=== PATIENT | female | born 1975 | race Two or more races ===

== ENCOUNTER 2018-03-20 08:17 | Emergency (ER) | payer OTHER ==
[~2018-03-20] VITALS: Ht 162.6 cm; Wt 99.8 kg
--- OUTSIDE RECORDS SUMMARY | ~2018-03-20 | XMS | Encounter Summary ---
Demographics + + + | Address | [address] | | | [place] [address] | + + + | Home Phone | | + + + | Preferred Language | Unknown | + + + | Marital Status | | + + + | Scientologist Affiliation | Unknown | + + + | Race | Unknown | + + + | Ethnic Group | Unknown | + + + Author + + + | Author | [facility] | + + + | Organization | [facility] | + + + | Address | Unknown | + + + | Phone | Unavailable | + + + Support + + + + + | Name | Relationship | Address | Phone | + + + + + | Onel Falcon | ECON | [address] | | | | | [place] | | | | | [address] | | + + + + + Care Team Providers + +------+ + | Care Middle School English Teacher Name | Role | Phone | + +------+ + | Olga Yanes PA-C | PCP | | + +------+ + Reason for Visit + + + | Reason | Comments | + + + | Labs Only | [facility] 03/11/17 | + + + Encounter Details +--------+ + + + + | Date | Type | Department | Care Team | Description | +--------+ + + + + | 03/02/ | Documentati | [facility] | Dana Lyles CMA | Labs Only ([facility] | | 2018 | on Only | Endocrinology [address] | | Family Med 03/11/17) | | | | aJred LOPE[place] | | | | | | [place], [place] | | | | | | [address] | | | | | | [phone] | | | +--------+ + + + + Social History + + + [...] | | + +---+---+---+ + + | Comments: on and off since age [...] on file | | + + + as of this encounter Plan of Treatment Not on fileas of this encounter Visit Diagnoses Not on filein this encounter"
--- OUTSIDE RECORDS SUMMARY | ~2018-03-20 | XMS | Clinical Summary ---
Demographics + + + | Address | [address] | | | [place] [address] | + + + | Home Phone | | + + + | Preferred Language | Unknown | + + + | Marital Status | | + + + | Alevism Affiliation | Unknown | + + + | Race | Unknown | + + + | Ethnic Group | Unknown | + + + Author + + + | Author | [facility] | + + + | Organization | [facility] | + + + | Address | Unknown | + + + | Phone | Unavailable | + + + Support + + + + + | Name | Relationship | Address | Phone | + + + + + | Onel Falcon | ECON | [address] | | | | | [place] | | | | | [address] | | + + + + + Care Team Providers + +------+ + | Care Food Porter Name | Role | Phone | + [...] Hyperthyroidism | 12/18/2014 | + + + Encounters +--------+ + + + + | Date | Type | Specialty | Care Team | Description | +--------+ + + + + | 03/02/ | Documentati | | Dana Lyles CMA | Labs Only ([facility] | | 2017 | on Only | | | Family Med 03/11/17) | +--------+ + + + + from Last 3 Months Family History + + +------+ + | [...] + +--------+ +------+-------+ + | ADARSH - WPS - | [place] | [phone] | | | [address] [address] | | [place] | [place] | | | | [place], [place] | | | [place] | | | | [phone] | | | [place] | | | [...] | Self | [birth year] | Home: | [address] | | | [place] | | 1974 | [phone] | [place] | | | [place] | | | [phone] | [phone] | + +--------+ +--------+ + +"
--- OUTSIDE RECORDS SUMMARY | ~2018-03-20 | XMS | Clinical Summary ---
Demographics + + + | Address | [address] | | | [place] [address] | + + + | Home Phone | | + + + | Preferred Language | Unknown | + + + | Marital Status | | + + + | Yazidism Affiliation | Unknown | + + + | Race | Unknown | + + + | Ethnic Group | Unknown | + + + Author + + + | Author | [facility] | + + + | Organization | [facility] | + + + | Address | Unknown | + + + | Phone | Unavailable | + + + Support + + + + + | Name | Relationship | Address | Phone | + + + + + | Onel Falcon | ECON | [address] | | | | | [place] | | | | | [address] | | + + + + + Care Team Providers + +------+ + | Care Functional Analyst Name | Role | Phone | + [...] ADARSH - WPS - | [place] | [phone] | | | [address] [address] | | [place] | [place] | | | | [place], [place] | | | [place] | | | | [phone] | | | [place] | | | [...] | Self | [birth year] | Home: | [address] | | | [place] | | 1974 | [phone] | [place] | | | [place] | | | [phone] | [phone] | + +--------+ +--------+ + +"
--- OUTSIDE RECORDS SUMMARY | ~2018-03-20 | XMS | Encounter Summary ---
Demographics + + + | Address | [address] | | | [place] [address] | + + + | Home Phone | | + + + | Preferred Language | Unknown | + + + | Marital Status | | + + + | Yarsanism Affiliation | Unknown | + + + | Race | Unknown | + + + | Ethnic Group | Unknown | + + + Author + + + | Author | [facility] | + + + | Organization | [facility] | + + + | Address | Unknown | + + + | Phone | Unavailable | + + + Support + + + + + | Name | Relationship | Address | Phone | + + + + + | Onel Falcon | ECON | [address] | | | | | [place] | | | | | [address] | | + + + + + Care Team Providers + +------+ + | Care Host And Hostess Name | Role | Phone | + +------+ + | Olga Yanes PA-C | PCP | | + +------+ + Reason for Visit + + + | Reason | Comments | + + + | Labs Only | [facility] 03/11/17 | + + + Encounter Details +--------+ + + + + | Date | Type | Department | Care Team | Description | +--------+ + + + + | 03/02/ | Documentati | [facility] | Dana Lyles CMA | Labs Only ([facility] | | 2018 | on Only | Endocrinology [address] | | Family Med 03/11/17) | | | | Jared LOPEZ | | | | | | [place], [place] | | | | | | [address] | | | | | | [phone] | | | +--------+ + + + [...]
[~2018-03-20 08:17] MED LIST: AMOXICILLIN500 MG PO; CEPHALEXIN500 MG PO; CIPRODEX OTIC7.5 ML AD; CORTISPORIN EAR10 ML AD; FISH OIL 1,2001 EAC1 PO; HYDROCHLOROTH12.5 M1 PO; HYDROCHLOROTH12.5 MG PO; LISINOPRIL10 MG PO; METHIMAZOLE10 MG PO; NORCO 5-325 TA1 EACH PO; PROPRANOLOL HCL10 MG PO; ROBAXIN-750750 MG PO; SUMATRIPTAN SUC50 MG PO; VITAMIN D32000 UNIT PO; VITAMIN D5000 UNIT PO
[2018-03-20] MEDS ORDERED: LISINOPRIL-HCT1 EAC2 PO (08:30)
[2018-03-20] MEDS ORDERED: ONDANSETRON ODT8 MG PO (11:04)
== END 2018-03-20 11:35 | disposition home or self-care (01) ==
LOC: ED 08:17
DX: G43.909 Migraine, unspecified, not intractable, without status migrainosus (principal); Z88.2 Allergy status to sulfonamides; Z88.8 Allergy status to other drugs, medicaments and biological substances; Z79.899 Other long term (current) drug therapy
CPT/HCPCS: 96361; 96374; 96375; 99283; J1200; J1885; J2060; J2765; J7030

== ENCOUNTER 2018-06-12 10:37 | Emergency (ER) | payer OTHER ==
[~2018-06-12] VITALS: Ht 162.6 cm; Wt 99.8 kg
--- OUTSIDE RECORDS SUMMARY | ~2018-06-12 | XMS | Clinical Summary ---
Demographics + + + | Address | [address] | | | [place] [address] | + + + | Home Phone | | + + + | Preferred Language | Unknown | + + + | Marital Status | | + + + | Druze Affiliation | Unknown | + + + | Race | Unknown | + + + | Ethnic Group | Unknown | + + + Author + + + | Author | [facility] | + + + | Organization | [facility] [employer] [facility] | + + + | Address | Unknown | + + + | Phone | Unavailable | + + + Support + + + + + | Name | Relationship | Address | Phone | + + + + + | Onel Falcon | ECON | [address] | | | | | [place] | | | | | [phone] | | + + + + + Care Team Providers + +------+ + | Care Watch Repairer Name | Role | Phone | + +------+ + | Olga Yanes PA-C | PP | | + +------+ + Allergies + + + + + + | Active Allergy | Reactions | Severity | Noted | Comments | | | | | Date | | + + + + + + | Famotidine | Hives | High | 12/19/19 | | | | | | 15 | | + + + + + + | Sulfa Antibiotics | Other (See Comments) | Medium | 06/11/20 | Ear drops, Burning | | | | | 16 | in ear | + + + + + + Current Medications + + +-------+---------+------+------+-------+ | Prescription | Sig. | Disp. | Refills | Star | End | Statu | | | | | | t | Date | s | | | | | | Date | | | + + +-------+---------+------+------+-------+ | Cholecalciferol | Take 5,000 Units by | | | | | Activ | | 5000 UNITS capsule | mouth daily. | | | | | e | + + +-------+---------+------+------+-------+ Active Problems + + + | Problem | Noted Date | + + + | Hyperthyroidism | 12/18/2014 | + + + Family History + + +------+ + | Medical History | Relation | Name | Comments | + + +------+ + | Diabetes type I | Father | | | + + +------+ + | Heart disease | Father | | | + + +------+ + | High cholesterol | Father | | | + + +------+ + | Hypertension | Father | | | + + +------+ + | High cholesterol | Mother | | | + + +------+ + | Hypertension | Mother | | | + + +------+ + + +------+ + + | Relation | Name | Status | Comments | + +------+ + + | Father | | | | + +------+ + + | Mother | | Alive | | + +------+ + + Social History + + + +--------+ + | Tobacco Use | Types | Packs/Day | Years | Date | | | | | Used | | + + + +--------+ + | Former Smoker | Cigarettes | 1 | 20 | Quit: 04/08/2015 | + + + +--------+ + + +---+---+---+ | Smokeless Tobacco: | | | | | Never Used | | | | + +---+---+---+ + + | Tobacco Cessation: Counseling Given: Yes | | Comments: on and off since age 21 | + + + + +---------+ + | Alcohol Use | Drinks/We | oz/Week | Comments | | | ek | | | + + +---------+ + | No | 0 | 0.0 | rarely | | | Standard | | | | | drinks or | | | | | | | | | | equivalen | | | | | t | | | + + +---------+ + + + + | Sex Assigned at | Date Recorded | | | | + + + | Not on file | | + + + Last Filed Vital Signs + + + + | Vital Sign | Reading | Time Taken | + + + + | Blood Pressure | 136/86 | 06/24/2017 10:04 AM PST | + + + + | Pulse | 88 | 06/24/2017 10:04 AM PST | + + + + | Temperature | - | - | + + + + | Respiratory Rate | 14 | 12/18/2014 1:03 PM PDT | + + + + | Oxygen Saturation | 100% | 06/24/2017 10:04 AM PST | + + + + | Inhaled Oxygen | - | - | | Concentration | | | + + + + | Weight | 108 kg (238 lb) | 06/24/2017 10:04 AM PST | + + + + | Height | - | - | + + + + | Body Mass Index | - | - | + + + + Plan of Treatment + + + + + | Health Maintenance | Due Date | Last Done | Comments | + + + + + | Vaccine: | | | | | Dtap/Tdap/Td (1 - | 6 | | | | Tdap) | | | | + + + + + | Cervical Cancer | | | | | Screening (Pap) | 7 | | | + + + + + | Vaccine: Influenza | | | | | (#1) | 8 | | | + + + + + Results Not on filefrom Last 3 Months Insurance + +--------+ +------+-------+ + | Payer | Benefi | Subscriber | Type | Phone | Address | | | t Plan | ID | | | | | | / | | | | | | | Group | | | | | + +--------+ +------+-------+ + | ADARSH - S - | [place] | [id number] | | | [place] [address] | | [place] | [place] | | | | [place] | | | [place] | | | | [phone] | | | [place] | | | | | | | NFS | | | | | + +--------+ +------+-------+ + + +--------+ +--------+ + + | Guarantor Name | Accoun | Relation to | Date | Phone | Billing Address | | | t Type | Patient | of | | | | | | | | | | + +--------+ +--------+ + + | ANGELINA FALCON | Person | Self | [birth year] | Home: | [address] | | | al/Fam | | 1974 | [phone] | [place] | | | [place] | | | [phone] | [phone] | + +--------+ +--------+ + +"
--- OUTSIDE RECORDS SUMMARY | ~2018-06-12 | XMS | Clinical Summary ---
Demographics + + + | Address | [address] | | | [place] [address] | + + + | Home Phone | | + + + | Preferred Language | Unknown | + + + | Marital Status | | + + + | Cheondoism Affiliation | Unknown | + + + | Race | Unknown | + + + | Ethnic Group | Unknown | + + + Author + + + | Author | [facility] [employer] [facility] | + + + | Organization | [facility] [employer] [facility] | + + + | Address | Unknown | + + + | Phone | Unavailable | + + + Support + + + + + | Name | Relationship | Address | Phone | + + + + + | Onel Falcon | ECON | [address] | | | | | [place] | | | | | [address] | | + + + + + Care Team Providers + +------+ + | Care Skinner Pelts Name | Role | Phone | + [...] ADARSH - S - | [place] | [id number] | | | [place] [address] | | [place] | [place] | | | | [place] | | | [place] | | | | [phone] | | | [place] | | | [...] | Self | [birth year] | Home: | [address] | | | al/Fam | | 1974 | [phone] | [place] | | | [place] | | | [phone] | [phone] | + +--------+ +--------+ + +"
[~2018-06-12 10:37] MED LIST changes: +LISINOPRIL-HCT1 EAC2 PO; +ONDANSETRON ODT8 MG PO
[2018-06-12] MEDS ORDERED: LEVOTHYROXINE75 MCG PO (10:50)
--- NOTE | 2018-06-12 14:28 | EKG ---
[facility] [address] [facility] [place], [place] [address] Signed Normal sinus rhythm Normal ECG No previous ECGs available Confirmed by ADAL DE LA VEGA DO ([id number]) on 06/12/2018 2:28:36 PM Electronically Signed By: ADAL DE LA VEGA DO 06/12/18 1428 PATIENT NAME: TALON NICHOLAS Electrocardiogram DATE OF : 79 PHYSICIAN: ADAL DE LA VEGA DO REPORT #: [id number] REPORT IS CONFIDENTIAL AND NOT TO BE RELEASED WITHOUT AUTHORIZATION
== END 2018-06-12 16:35 | disposition home or self-care (01) ==
LOC: ED 10:37
DX: R20.2 Paresthesia of skin (principal); E03.9 Hypothyroidism, unspecified; I10 Essential (primary) hypertension; G43.909 Migraine, unspecified, not intractable, without status migrainosus; Z87.891 Personal history of nicotine dependence; Z88.2 Allergy status to sulfonamides; Z88.8 Allergy status to other drugs, medicaments and biological substances; Z79.899 Other long term (current) drug therapy
CPT/HCPCS: 70450; 70496; 70498; 70551; 80053; 81001; 84484; 85025; 93005; 93010; 99284; Q9967

== ENCOUNTER 2018-10-08 11:22 | Emergency (ER) | payer OTHER ==
[~2018-10-08] VITALS: Ht 162.6 cm; Wt 99.8 kg
[~2018-10-08 11:22] MED LIST changes: +LEVOTHYROXINE75 MCG PO
--- NOTE | 2018-10-08 22:36 | EKG ---
[facility] [address] [facility] [place] [address] Signed Normal sinus rhythm Normal ECG When compared with ECG of 12-JUN-2018 11:03, No significant change was found Confirmed by ERIN ARMSTRONG MD ([id number]) on 10/08/2018 10:36:24 PM Electronically Signed By: ERIN ARMSTRONG MD 10/08/18 2236 PATIENT NAME: TALON NICHOLAS ZEUS Electrocardiogram DATE OF : [birth year] PHYSICIAN: ERIN ARMSTRONG MD REPORT #: [id number] REPORT IS CONFIDENTIAL AND NOT TO BE RELEASED WITHOUT AUTHORIZATION
== END 2018-10-08 15:20 | disposition home or self-care (01) ==
LOC: ED 11:22
DX: M54.6 Pain in thoracic spine (principal); R53.1 Weakness; E03.9 Hypothyroidism, unspecified; Z88.2 Allergy status to sulfonamides; Z88.8 Allergy status to other drugs, medicaments and biological substances; Z79.899 Other long term (current) drug therapy
CPT/HCPCS: 80053; 81001; 84484; 85025; 85379; 93005; 93010; 99285-25

== ENCOUNTER 2018-10-26 08:05 | Day surgery (SDC) | payer OTHER ==
[~2018-10-26] VITALS: Ht 162.6 cm; Wt 102.5 kg
[~2018-10-26 08:05] MED LIST changes: +IRON325 M1 PO; +K-TAB ER20 MEQ PO; +MAGNESIUM250 M1 PO; +PROZAC10 MG PO; +VITAMIN D5000 UNI1 PO; +VITAMIN K240 MCG PO
[2018-10-26] MEDS ORDERED: ATIVAN1 MG PO (08:34)
--- NOTE | 2018-10-26 10:18 | NUR ---
10/26/18 1018 Mitra Klein 1012 PATIENT ARRIVES TO PACU SLEEPING, OPENS EYES WITH VERBAL STIMULI, THEN BACK TO SLEEP. RESP EVEN AND UNLABORED, NC TURNED OFF ON ARRIVAL TO PACU, ROOM AIR SATS >95%.
--- NOTE | 2018-10-27 07:00 | OR ---
[facility] [address] [place], [place] [address] Signed DATE OF OPERATION: 10/26/2018 SURGEON: Vinicio Chicas MD PREOPERATIVE DIAGNOSES: 1. Iron-deficiency anemia. 2. Gastroesophageal reflux disease. 3. Nausea. 4. Epigastric abdominal pain. 5. Constipation following oral iron therapy. POSTOPERATIVE DIAGNOSES: 1. Small hiatal hernia. 2. Mild gastroduodenitis. 3. 3 mm polyp in cecum. 4. 3 mm polyp at 18 cm. 5. Minimal internal hemorrhoids. PROCEDURES: 1. EGD with CLOtest and biopsies of the antrum. 2. Colonoscopy without biopsy. ESTIMATED BLOOD LOSS: None. INDICATIONS: Angelina is a 43-year-old female who was found to have iron-deficiency anemia. She is also known to have acid reflux. She started on her oral iron therapy and developed some constipation. She also has some nausea and epigastric abdominal pain. Consequently, she was asked to see me for both upper and lower endoscopies. In the office, I gave her pamphlets on both subjects. We looked at those together. She understands the risks including, but not limited to gas, bloating, crampy abdominal pain, bleeding, perforation, requiring surgery, and missed diagnoses. She also understands the need for IV conscious sedation. She told me she had an upper endoscopy a number of years ago at an outside hospital. She said she was awake during the procedure and it was quite awful. We gave her some Xanax to take prior to coming to the hospital, which she did. She said that seemed to help. She had expressed understanding and wished to proceed. PROCEDURE NOTE: Angelina was taken into our endoscopy suite and placed in the supine semi-recumbent Electronically Signed By: VINICIO CHICAS MD 10/27/18 0700 PATIENT NAME: ANGELINA NICHOLAS OPERATIVE REPORT DATE OF : 79 REPORT #: [id number] PHYSICIAN: VINICIO CHICAS MD PCP: OLGA CHEATHAM REPORT IS CONFIDENTIAL AND NOT TO BE RELEASED WITHOUT AUTHORIZATION [facility] [address] [place], [place] [address] Signed position. She was given a total of 7 mg of Versed and 200 mcg fentanyl to cover both upper and lower endoscopies. The posterior oropharynx was anesthetized with lidocaine spray. A bite block was utilized for the upper endoscopy. The adult gastroscope was introduced and advanced under direct visualization of camera out into the third portion of the duodenum under direct visualization the camera without difficulty. The duodenum was unremarkable. The pyloric channel and stomach showed very minimal erythematous changes. We went ahead and took a biopsy from the pyloric bulb as well as the antrum for pathologic review. We took a biopsy of the antrum for CLOtest. No ulcerations. Upon retroflexion of the scope, she does have just a small hiatal hernia. There was no gastric or esophageal varices. The scope was withdrawn up to the area of GE junction, which was compliant without stricture. No Stanislaw's ulcer and no Leslee-La tear. Very minimal disruption to her Z-line. No Ta's mucosa and no distal esophagitis. The middle and upper esophagus were unremarkable. After this, the gas was suctioned out and the gastroscope removed. Angelina tolerated the procedure quite well. Angelina was then rotated into the left lateral decubitus position. She was maintained on IV sedation with IV Versed and fentanyl. A digital rectal exam was performed and this was unremarkable. She does have good sphincter tone. The adult colonoscope was introduced and advanced all around into the cecum under direct visualization of camera without difficulty. Her prep was quite good. She had just a tiny 3 mm polyp in the base of the cecum, so we removed it with hot biopsy forceps. The rest of the colon was fine, and just as we came to the rectosigmoid junction, she had two tiny 3 mm polyp [id number], which we removed and sent to the Pathology Department. The rectum was unremarkable. There was no diverticulosis. Upon retroflexion of scope, she does have some very small internal hemorrhoid tissue. The gas was then suctioned out and the colonoscope removed. Angelina actually tolerated both upper and lower endoscopies quite well our. RECOMMENDATIONS: Angelina will follow up my office in 7 to 14 days to review her results. Vinicio Chicas MD ALB/MODL /[id number] Electronically Signed By: VINICIO CHICAS MD 10/27/18 0700 PATIENT NAME: ANGELINA NICHOLAS OPERATIVE REPORT DATE OF : [birth year] REPORT #: [id number] PHYSICIAN: VINICIO CHICAS MD PCP: OLGA CHEATHAM REPORT IS CONFIDENTIAL AND NOT TO BE RELEASED WITHOUT AUTHORIZATION [address] [address] Signed cc: MD Olga Cleveland PA Shannon Bales, MD Copies: VINICIO CHICAS MD, LINDA PA BALES, SHANNON MD ~ Electronically Signed By: VINICIO CHICAS MD 10/27/18 0700 PATIENT NAME: ANGELINA NICHOLAS OPERATIVE REPORT DATE OF : [birth year] REPORT #: [id number] PHYSICIAN: VINICIO CHICAS MD PCP: OLAG CHEATHAM REPORT IS CONFIDENTIAL AND NOT TO BE RELEASED WITHOUT AUTHORIZATION
== END 2018-10-26 10:55 | disposition home or self-care (01) ==
LOC: DS 08:05 → OPS 08:05 → DS 09:45 → OPS 10:55
PROVIDERS: Colon & Rectal Surgery
PROC: 0DBH8ZZ Excision of Cecum, Via Natural or Artificial Opening Endoscopic (ICD-10-PCS; 2018-10-26)
PROC: 0DBE8ZZ Excision of Large Intestine, Via Natural or Artificial Opening Endoscopic (ICD-10-PCS; 2018-10-26)
PROC: 0DB98ZX Excision of Duodenum, Via Natural or Artificial Opening Endoscopic, Diagnostic (ICD-10-PCS; principal; 2018-10-26 09:45)
PROC: 0DB78ZX Excision of Stomach, Pylorus, Via Natural or Artificial Opening Endoscopic, Diagnostic (ICD-10-PCS; 2018-10-26 09:45)
DX: D12.0 Benign neoplasm of cecum (principal); K29.50 Unspecified chronic gastritis without bleeding; K29.80 Duodenitis without bleeding; K63.5 Polyp of colon; K64.8 Other hemorrhoids; K21.9 Gastro-esophageal reflux disease without esophagitis; K59.00 Constipation, unspecified; K44.9 Diaphragmatic hernia without obstruction or gangrene; D50.9 Iron deficiency anemia, unspecified; I10 Essential (primary) hypertension; E78.5 Hyperlipidemia, unspecified; G43.909 Migraine, unspecified, not intractable, without status migrainosus; F17.210 Nicotine dependence, cigarettes, uncomplicated; Z88.8 Allergy status to other drugs, medicaments and biological substances; Z88.2 Allergy status to sulfonamides; Z79.899 Other long term (current) drug therapy
CPT/HCPCS: 86677; 99153; G0500; J2250; J3010; J7120

== ENCOUNTER 2019-03-28 13:58 | Emergency (ER) | payer OTHER ==
[~2019-03-28] VITALS: Ht 162.6 cm; Wt 102.5 kg
[~2019-03-28 13:58] MED LIST changes: +ATIVAN1 MG PO
--- OUTSIDE RECORDS SUMMARY | 2019-03-28 14:00 | XMS ---
PreManage Notification: TALON NICHOLAS Security Secondary Teacher Events No recent Security Events currently on file CRITERIA MET - [facility] - 2 Visits in 30 Days CARE PROVIDERS There are no care providers on record at this time. [facility] has no Care Guidelines for this patient. Pam[facility] VISIT COUNT (12 MO.) [address] [facility] TOTAL 4 NOTE: Visits indicate total known visits. ED/C VISIT TRACKING (12 MO.) 03/28/2019 13:59 [facility] TYPE: Emergency COMPLAINT: - CHEST PAIN 03/04/2019 22:52 [facility] TYPE: Emergency COMPLAINT: - BLOOD PRESSURE CONSERN DIAGNOSES: - Essential (primary) hypertension - Hypothyroidism, unspecified - Chest pain, unspecified - Pain in left shoulder - Other equipment operator intermodal yard (current) drug therapy - Allergy status to other drugs, medicaments and biological substances status - Allergy status to sulfonamides status 10/08/2018 11:23 [facility] TYPE: Emergency COMPLAINT: - BACK PAIN,NON INJURY DIAGNOSES: - Hypothyroidism, unspecified - Pain in thoracic spine - Allergy status to sulfonamides status - Weakness - Other equipment operator intermodal yard (current) drug therapy - Allergy status to other drugs, medicaments and biological substances status 06/12/2018 10:37 [facility] TYPE: Emergency COMPLAINT: - BLOOD PRESSURE PROBLEMS,NUMBNESS DIAGNOSES: - Essential (primary) hypertension - Migraine, unspecified, not intractable, without status migrainosus - Allergy status to other drugs, medicaments and biological substances status - Other equipment operator intermodal yard (current) drug therapy - Allergy status to sulfonamides status - Anesthesia of skin - Paresthesia of skin - Personal history of nicotine dependence - Hypothyroidism, unspecified INPATIENT VISIT TRACKING (12 MO.) No inpatient visits to display in this time frame [email or web address]
[2019-03-28] MEDS ORDERED: CLONIDINE HCL0.1 M1 PO (15:40)
--- NOTE | 2019-03-28 21:43 | EKG ---
[facility] [address] [facility] [place] [address] Signed Normal sinus rhythm Normal ECG When compared with ECG of 04-MAR-2019 23:00, No significant change was found Confirmed by ADAL DE LA VEGA DO ([id number]) on 03/28/2019 9:43:41 PM Electronically Signed By: ADAL DE LA VEGA DO 03/28/19 2143 PATIENT NAME: TALON NICHOLAS ZEUS Electrocardiogram DATE OF : 79 PHYSICIAN: ADAL DE LA VEGA DO REPORT #: [id number] REPORT IS CONFIDENTIAL AND NOT TO BE RELEASED WITHOUT AUTHORIZATION
== END 2019-03-28 15:54 | disposition home or self-care (01) ==
LOC: ED 13:58
DX: I10 Essential (primary) hypertension (principal); E03.9 Hypothyroidism, unspecified; G43.909 Migraine, unspecified, not intractable, without status migrainosus; Z88.2 Allergy status to sulfonamides; Z88.8 Allergy status to other drugs, medicaments and biological substances; Z79.899 Other long term (current) drug therapy
CPT/HCPCS: 71045; 80053; 83880; 84484; 85025; 93005; 93010; 99285-25

== ENCOUNTER 2020-03-07 16:36 | Emergency (ER) | payer OTHER ==
[~2020-03-07] VITALS: Ht 162.6 cm; Wt 104.3 kg
--- OUTSIDE RECORDS SUMMARY | ~2020-03-07 | XMS | Encounter Summary ---
Demographics + + + | Address | [address] | | | [place] [address] | + + + | Home Phone | | + + + | Preferred Language | Unknown | + + + | Marital Status | Unknown | + + + | Temple Affiliation | Unknown | + + + | Race | Unknown | + + + | Ethnic Group | Unknown | + + + Author + + + | Author | [facility] | | | and [place] | + + + | Organization | [facility] | | | and [place] | + + + | Address | Unknown | + + + | Phone | Unavailable | + + + Support + + + + + | Name | Relationship | Address | Phone | + + + + + | Onel Falcon | JESSICA | [address] | | | | | [place] | | | | | [address] | | + + + + + Care Team Providers + +------+ + | Care Returned Goods Inspector Name | Role | Phone | + +------+ + | Ogla Yanes PA-C | PCP | | + +------+ + Encounter Details +--------+ + + + + | Date | Type | Department | Care Team | Description | +--------+ + + + + | 03/15/ | Orders Only | [facility] | Samara Carvalho MD | | | 2017 | | [address] | [address] | | | | | [place], [place] | [place], [place] | | | | | [address] | [address] | | | | | [phone] | | | +--------+ + + + [...] + + documented as of this encounter Progress Notes Samara Carvalho MD - 03/15/2017 4:25 PM PDTFormatting of this note might be different fr om the original. Progress Notes by Samara Carvalho MD at 03/15/17 1625 Author: Samara Carvalho MD Service: (none) Author Type: Physician Filed: 03/16/17 0909 Encounter Date: 03/15/2017 Status: Signed Parts Assembler: Samara Carvalho MD (Physician) Please contact patient and inform of the lab results. I have also sent note via [employer]. Pl ease also send note to PMD Hope you are doing well! The recent labs are overall reassuring. The THS is NORMAL at 4.85 As suspected, the labs indicate that we should stop the methimazole entirely at this junctu re. Please stop the methimazole. Please be sure to have labs again in 6-8 weeks (orders were provided to you at the appointment). Otherwise the liver, kidney, calcium and blood counts are in acceptable ranges. Please continue with all other previous plans for management and follow up, unless there ar e any other concerns or questions. Take care SB documented in this encounter Plan of Treatment Not on filedocumented as of this encounter Procedures + +--------+ + + + | Procedure Name | Priori | Date/Time | Associated Diagnosis | Comments | | | ty | | | | + +--------+ + + + | EXTERNAL LAB: CBC | Routin | 03/15/2017 | | Results for this | | | e | 4:30 PM | | procedure are in the | | | | PDT | | results section. | + +--------+ + + + | T3, FREE | Routin | 03/15/2017 | | Results for this | | | e | 4:30 PM | | procedure are in the | | | | PDT | | results section. | + +--------+ + + + | TSH | Routin | 03/15/2017 | | Results for this | | | e | 4:30 PM | | procedure are in the | | | | PDT | | results section. | + +--------+ + + + | T4, FREE | Routin | 03/15/2017 | | Results for this | | | e | 4:30 PM | | procedure are in the | | | | PDT | | results section. | + +--------+ + + + | COMPREHENSIVE | Routin | 03/15/2017 | | Results for this | | METABOLIC PANEL | e | 4:30 PM | | procedure are in the | | | | PDT | | results section. | + +--------+ + + + documented in this encounter Results External Lab: CBC (03/15/2017 4:30 PM PDT) + + + + + + | Component | Value | Ref Range | Performed | Pathologist | | | | | At | Signature | + + + + + + | WBC | 7.81 | 3.80 - 11.00 | EXTERNAL | | | | | 10*3/uL | LAB | | + + + + + + | Non- | 4.73 | 3.70 - 5.10 | EXTERNAL | | | Red Blood | | 10*6/uL | LAB | | | Cells | | | | | | Counted | | | | | + + + + + + | Hemoglobin | 11.8 | 11.3 - 15.5 | EXTERNAL | | | | | g/dL | LAB | | + + + + + + | Hematocrit, | 36.5 | 34.0 - 46.0 % | EXTERNAL | | | POC | | | LAB | | + + + + + + | MCV | 77.2 (L) | 80.0 - 100.0 fL | EXTERNAL | | | | | | LAB | | + + + + + + | MCH | 24.9 (L) | 27.0 - 34.0 pg | EXTERNAL | | | | | | LAB | | + + + + + + | MCHC | 32.3 | 32.0 - 35.5 | EXTERNAL | | | | | g/dL | LAB | | + + + + + + | RDW-CV | 42.0 | 37 - 53 fL | EXTERNAL | | | | | | LAB | | + + + + + + | Platelet | 260 | 150 - 400 | EXTERNAL | | | Count | | 10*3/uL | LAB | | | Plasma | | | | | + + + + + + | MPV | 9.4 | fL | EXTERNAL | | | | | | LAB | | + + + + + + | Differentia | AUTOMATED | | EXTERNAL | | | l Type | | | LAB | | + + + + + + | % Segmented | 58.84 | % | EXTERNAL | | | | | | LAB | | | Neutrophils | | | | | + + + + + + | % | 33.08 | % | EXTERNAL | | | Lymphocytes | | | LAB | | + + + + + + | % Monocytes | 4.63 | % | EXTERNAL | | | | | | LAB | | + + + + + + | % | 2.64 | % | EXTERNAL | | | Eosinophils | | | LAB | | + + + + + + | % Basophils | 0.81 | % | EXTERNAL | | | | | | LAB | | + + + + + + | Absolute | 4.60 | 1.90 - 7.40 | EXTERNAL | | | Segmented | | 10*3/uL | LAB | | | Neutrophils | | | | | + + + + + + | Absolute | 2.59 | 1.00 - 3.90 | EXTERNAL | | | Lymphocytes | | 10*3/uL | LAB | | + + + + + + | Absolute | 0.36 | 0.00 - 0.80 | EXTERNAL | | | Monocytes | | 10*3/uL | LAB | | + + + + + + | Absolute | 0.21 | 0.00 - 0.50 | EXTERNAL | | | Eosinophils | | 10*3/uL | LAB | | + + + + + + | Absolute | 0.06 | 0.00 - 0.10 | EXTERNAL | | | Basophils | | 10*3/uL | LAB | | + + + + + + + + | Specimen | + + | Blood specimen | | (specimen) | + + + +---------+ + + | Performing | Address | City/State/Zipcode | Phone Number | | Organization | | | | + +---------+ + + | EXTERNAL LAB | | | | + +---------+ + + T3, Free (03/15/2017 4:30 PM PDT) + +-------+ + + + | Component | Value | Ref Range | Performed | Pathologist | | | | | At | Signature | + +-------+ + + + | T3, Free | 2.3 | 2.18 - 3.98 | EXTERNAL | | | | | pg/mL | LAB | | + +-------+ + + + + + | Specimen | + + | Blood specimen | | (specimen) | + + + +---------+ + + | Performing | Address | City/State/Zipcode | Phone Number | | Organization | | | | + +---------+ + + | EXTERNAL LAB | | | | + +---------+ + + TSH (03/15/2017 4:30 PM PDT) + +-------+ + + + | Component | Value | Ref Range | Performed | Pathologist | | | | | At | Signature | + +-------+ + + + | TSH | 4.85 | 0.45 - 5.10 | EXTERNAL | | | | | u[iU]/mL | LAB | | + +-------+ + + + + + | Specimen | + + | Blood specimen | | (specimen) | + + + +---------+ + + | Performing | Address | City/State/Zipcode | Phone Number | | Organization | | | | + +---------+ + + | EXTERNAL LAB | | | | + +---------+ + + T4, Free (03/15/2017 4:30 PM PDT) + +-------+ + + + | Component | Value | Ref Range | Performed | Pathologist | | | | | At | Signature | + +-------+ + + + | FREE T4 | 0.8 | 0.7 - 1.5 ng/dL | EXTERNAL | | | (REF) | | | LAB | | + +-------+ + + + + + | Specimen | + + | Blood specimen | | (specimen) | + + + +---------+ + + | Performing | Address | City/State/Zipcode | Phone Number | | Organization | | | | + +---------+ + + | EXTERNAL LAB | | | | + +---------+ + + Comprehensive Metabolic Panel (03/15/2017 4:30 PM PDT) + + + + + + | Component | Value | Ref Range | Performed | Pathologist | | | | | At | Signature | + + + + + + | Na | 138 | 135 - 145 | EXTERNAL | | | | | mmol/L | LAB | | + + + + + + | K | 3.7 | 3.5 - 4.9 | EXTERNAL | | | | | mmol/L | LAB | | + + + + + + | Cl | 101 | 99 - 109 mmol/L | EXTERNAL | | | | | | LAB | | + + + + + + | CO2 | 24 | 23 - 32 mmol/L | EXTERNAL | | | | | | LAB | | + + + + + + | Anion Gap | 17 | 5 - 20 mmol/L | EXTERNAL | | | | | | LAB | | + + + + + + | Glucose, | 74 | 65 - 99 mg/dL | EXTERNAL | | | Fasting | | | LAB | | + + + + + + | BUN | 16 | 8 - 25 mg/dL | EXTERNAL | | | | | | LAB | | + + + + + + | Creatinine | 0.8 | 0.50 - 1.00 | EXTERNAL | | | | | mg/dL | LAB | | + + + + + + | BUN/Creatin | 20 | | EXTERNAL | | | ine Ratio | | | LAB | | + + + + + + | Calcium | 9.1 | 8.5 - 10.5 | EXTERNAL | | | | | mg/dL | LAB | | + + + + + + | Protein, | 7.1 | 6.3 - 8.2 g/dL | EXTERNAL | | | Total | | | LAB | | + + + + + + | Albumin | 3.7 | 3.6 - 5.0 g/dL | EXTERNAL | | | | | | LAB | | + + + + + + | Globulin | 3.4 | 1.3 - 4.9 g/dL | EXTERNAL | | | | | | LAB | | + + + + + + | A/G Ratio | 1.1 | 1.0 - 2.4 | EXTERNAL | | | | | | LAB | | + + + + + + | Bilirubin | 0.3 | 0.1 - 1.5 mg/dL | EXTERNAL | | | Total | | | LAB | | + + + + + + | ALP, | 64 | 35 - 115 U/L | EXTERNAL | | | External | | | LAB | | + + + + + + | AST | 48 (H) | 10 - 45 U/L | EXTERNAL | | | | | | LAB | | + + + + + + | ALT | 54 | 10 - 65 U/L | EXTERNAL | | | | | | LAB | | + + + + + + | Estimated | >60Comment: GFR <60: | mL/min/1.73_m2 | EXTERNAL | | | GFR | CHRONIC KIDNEY DISEASE, | | LAB | | | | IF FOUND OVER A 3 MONTH | | | | | | PERIOD. GFR <15: KIDNEY | | | | | | FAILURE. FOR | | | | | | AMERICANS, MULTIPLY THE | | | | | | CALCULATED GFR BY 1.210. | | | | + + + + + + + + | Specimen | + + | Blood specimen | | (specimen) | + + + +---------+ + + | Performing | Address | City/State/Zipcode | Phone Number | | Organization | | | | + +---------+ + + | EXTERNAL LAB | | | | + +---------+ + + documented in this encounter Visit Diagnoses Not on filedocumented in this encounter"
--- OUTSIDE RECORDS SUMMARY | ~2020-03-07 | XMS | Encounter Summary ---
Demographics + + + | Address | [address] | | | [place] [address] | + + + | Home Phone | | + + + | Preferred Language | Unknown | + + + | Marital Status | Unknown | + + + | Orthodoxy Affiliation | Unknown | + + + | Race | Unknown | + + + | Ethnic Group | Unknown | + + + Author + + + | Author | [facility] | | | and [place] | + + + | Organization | [facility] | | | and [place] | + + + | Address | Unknown | + + + | Phone | Unavailable | + + + Support + + + + + | Name | Relationship | Address | Phone | + + + + + | Onel Falcon | JESSICA | [address] | | | | | [place] | | | | | [address] | | + + + + + Care Team Providers + +------+ + | Care Floor Hand Name | Role | Phone | + +------+ + PCP | Unavailable | + +------+ + Encounter Details +--------+ + + + + | Date | Type | Department | Care Team | Description | +--------+ + + + + | 06/22/ | Hospital | [facility] | Conversion | | | 2016 | Encounter | [facility] | Transaction, | | | | | NUCLEAR MEDICINE | Provider Unknown | | | | | [address] | | | | | | [place], [place] | (Fax) | | | | | [address] | | | | | | [phone] | | | +--------+ + + + [...]
--- OUTSIDE RECORDS SUMMARY | ~2020-03-07 | XMS | Encounter Summary ---
Demographics + + + | Address | [address] | | | [place] [address] | + + + | Home Phone | | + + + | Preferred Language | Unknown | + + + | Marital Status | Unknown | + + + | Hoahaoism Affiliation | Unknown | + + + | Race | Unknown | + + + | Ethnic Group | Unknown | + + + Author + + + | Author | [facility] | | | and [place] | + + + | Organization | [facility] | | | and [place] | + + + | Address | Unknown | + + + | Phone | Unavailable | + + + Support + + + + + | Name | Relationship | Address | Phone | + + + + + | Onel Falcon | JESSICA | [address] | | | | | [place] | | | | | [address] | | + + + + + Care Team Providers + +------+ + | Care Band Teacher Name | Role | Phone | + +------+ + PCP | Unavailable | + +------+ + Encounter Details +--------+ + + + + | Date | Type | Department | Care Team | Description | +--------+ + + + + | 06/23/ | Hospital | [facility] | Conversion | | | 2016 | Encounter | [facility] | Transaction, | | | | | NUCLEAR MEDICINE | Provider Unknown | | | | | [address] | | | | | | [place], [place] | (Fax) | | | | | [address] | | | | | | [phone] | | | +--------+ + + + [...]
--- OUTSIDE RECORDS SUMMARY | ~2020-03-07 | XMS | Encounter Summary ---
Demographics + + + | Address | [address] | | | [place] [address] | + + + | Home Phone | | + + + | Preferred Language | Unknown | + + + | Marital Status | Unknown | + + + | Moravian Affiliation | Unknown | + + + | Race | Unknown | + + + | Ethnic Group | Unknown | + + + Author + + + | Author | [facility] | | | and [place] | + + + | Organization | [facility] | | | and [place] | + + + | Address | Unknown | + + + | Phone | Unavailable | + + + Support + + + + + | Name | Relationship | Address | Phone | + + + + + | Onel Falcon | JESSICA | [address] | | | | | [place], [place] | | | | | [address] | | + + + + + Care Team Providers + +------+ + | Care Glory Hole Tender Name | Role | Phone | + +------+ + | Olga Yanes PA-C | PCP | | + +------+ + Encounter Details +--------+ + + + + | Date | Type | Department | Care Team | Description | +--------+ + + + + | 06/11/ | Orders Only | [facility] | Conversion | | | 2016 | | CONVERSION [address] | Transaction, | | | | | [address] | Provider Unknown | | | | | [place] | [phone] | | | | | [address] | | | | | | [phone] | | | +--------+ + + + [...]
--- OUTSIDE RECORDS SUMMARY | ~2020-03-07 | XMS | Encounter Summary ---
Demographics + + + | Address | [address] | | | [place] [address] | + + + | Home Phone | | + + + | Preferred Language | Unknown | + + + | Marital Status | Unknown | + + + | Pentecostalism Affiliation | Unknown | + + + | Race | Unknown | + + + | Ethnic Group | Unknown | + + + Author + + + | Author | [facility] | | | and [place] | + + + | Organization | [facility] | | | and [place] | + + + | Address | Unknown | + + + | Phone | Unavailable | + + + Support + + + + + | Name | Relationship | Address | Phone | + + + + + | Onel Falcon | JESSICA | [address] | | | | | [place] | | | | | [address] | | + + + + + Care Team Providers + +------+ + | Care Storage Facility Rental Clerk Name | Role | Phone | + +------+ + | Olga Yanes PA-C | PCP | | + +------+ + Encounter Details +--------+ + + + + | Date | Type | Department | Care Team | Description | +--------+ + + + + | 10/11/ | Orders Only | [facility] | Samara Carvalho MD | | | 2017 | | [address] | [address] | | | | | [place], [place] | [place], [place] | | | | | [address] | [address] | | | | | [phone] | | | +--------+ + + + [...] encounter Progress Notes Samara Carvalho MD - 10/12/2016 12:40 PM PSTFormatting of this note might be different fr om the original. Progress Notes by Samara Carvalho MD at 10/12/16 1240 Author: Samara Carvalho MD Service: (none) Author Type: Physician Filed: 10/12/16 8921 Encounter Date: 10/11/2016 Status: Signed [employer] Special Ed Teacher: Samara Carvalho MD (Physician) Quick Note: Please contact patient and inform of the lab results. I have also sent a note via [employer] Pleasure to see you the other day! The recent labs are quite reassuring! The free thyroid hormone levels are in a normal range. It will take several more months for the TSh to normalize, but this is fantastic progress! Otherwise the liver and kidney function is normal. Please decrease the methimazole to 1/2 of a 10mg tablet daily for now. Please have labs done again in about 8 weeks closer to home. I suspect we will be stopping the methimazole at that time. Please also continue with all other previous plans for management and follow up in February with labs prior, unless there are any other concerns or questions. Take care SB documented in this encounter Plan of Treatment Not on filedocumented as of this encounter Procedures + +--------+ + + + | Procedure Name | Priori | Date/Time | Associated Diagnosis | Comments | | | ty | | | | + +--------+ + + + | EXTERNAL LAB: CBC | Routin | 10/11/2016 | | Results for this | | | e | 2:33 PM | | procedure are in the | | | | PST | | results section. | + +--------+ + + + | T3, FREE | Routin | 10/11/2016 | | Results for this | | | e | 2:33 PM | | procedure are in the | | | | PST | | results section. | + +--------+ + + + | TSH | Routin | 10/11/2016 | | Results for this | | | e | 2:33 PM | | procedure are in the | | | | PST | | results section. | + +--------+ + + + | T4, FREE | Routin | 10/11/2016 | | Results for this | | | e | 2:33 PM | | procedure are in the | | | | PST | | results section. | + +--------+ + + + | COMPREHENSIVE | Routin | 10/11/2016 | | Results for this | | METABOLIC PANEL | e | 2:33 PM | | procedure are in the | | | | PST | | results section. | + +--------+ + + + documented in this encounter Results External Lab: CBC (10/11/2016 2:33 PM PST) + + + + + + | Component | Value | Ref Range | Performed | Pathologist | | | | | At | Signature | + + + + + + | WBC | 8.17 | 3.80 - 11.00 | EXTERNAL | | | | | 10*3/uL | LAB | | + + + + + + | Non- | 4.91 | 3.70 - 5.10 | EXTERNAL | | | Red Blood | | 10*6/uL | LAB | | | Cells | | | | | | Counted | | | | | + + + + + + | Hemoglobin | 13.2 | 11.3 - 15.5 | EXTERNAL | | | | | g/dL | LAB | | + + + + + + | Hematocrit, | 39.1 | 34.0 - 46.0 % | EXTERNAL | | | POC | | | LAB | | + + + + + + | MCV | 79.7 (L) | 80.0 - 100.0 fL | EXTERNAL | | | | | | LAB | | + + + + + + | MCH | 26.8 (L) | 27.0 - 34.0 pg | EXTERNAL | | | | | | LAB | | + + + + + + | MCHC | 33.7 | 32.0 - 35.5 | EXTERNAL | | | | | g/dL | LAB | | + + + + + + | RDW-CV | 38.1 | 37 - 53 fL | EXTERNAL | | | | | | LAB | | + + + + + + | Platelet | 283 | 150 - 400 | EXTERNAL | | | Count | | 10*3/uL | LAB | | | Plasma | | | | | + + + + + + | MPV | 8.6 | fL | EXTERNAL | | | | | | LAB | | + + + + + + | Differentia | AUTOMATED | | EXTERNAL | | | l Type | | | LAB | | + + + + + + | % Segmented | 64.70 | % | EXTERNAL | | | | | | LAB | | | Neutrophils | | | | | + + + + + + | % | 27.19 | % | EXTERNAL | | | Lymphocytes | | | LAB | | + + + + + + | % Monocytes | 5.28 | % | EXTERNAL | | | | | | LAB | | + + + + + + | % | 2.48 | % | EXTERNAL | | | Eosinophils | | | LAB | | + + + + + + | % Basophils | 0.35 | % | EXTERNAL | | | | | | LAB | | + + + + + + | Absolute | 5.29 | 1.90 - 7.40 | EXTERNAL | | | Segmented | | 10*3/uL | LAB | | | Neutrophils | | | | | + + + + + + | Absolute | 2.22 | 1.00 - 3.90 | EXTERNAL | | | Lymphocytes | | 10*3/uL | LAB | | + + + + + + | Absolute | 0.43 | 0.00 - 0.80 | EXTERNAL | | | Monocytes | | 10*3/uL | LAB | | + + + + + + | Absolute | 0.20 | 0.00 - 0.50 | EXTERNAL | | | Eosinophils | | 10*3/uL | LAB | | + + + + + + | Absolute | 0.03 | 0.00 - 0.10 | EXTERNAL | [...] | + +---------+ + + T3, Free (10/11/2016 2:33 PM PST) + +-------+ + + + | Component | Value | Ref Range | Performed | Pathologist | | | | | At | Signature | + +-------+ + + + | T3, Free | 3.6 | 2.18 - 3.98 | EXTERNAL | [...] | | + +---------+ + + TSH (10/11/2016 2:33 PM PST) + + + + + + [...] | + +---------+ + + T4, Free (10/11/2016 2:33 PM PST) + +-------+ + + + | Component | Value | Ref Range | Performed | Pathologist | | | | | At | Signature | + +-------+ + + + | FREE T4 | 1.1 | 0.7 - 1.5 ng/dL | EXTERNAL [...] + +---------+ + + Comprehensive Metabolic Panel (10/11/2016 2:33 PM PST) + + + + + + | Component | Value | Ref Range | Performed | Pathologist | | | | | At | Signature | + + + + + + | Na | 144 | 135 - 145 | EXTERNAL | | | | | mmol/L | LAB | | + + + + + + | K | 4.1 | 3.5 - 4.9 | EXTERNAL | | | | | mmol/L | LAB | | + + + + + + | Cl | 106 | 99 - 109 mmol/L | EXTERNAL | | | | | | LAB | | + + + + + + | CO2 | 26 | 23 - 32 mmol/L | EXTERNAL | | | | | | LAB | | + + + + + + | Anion Gap | 16 | 5 - 20 mmol/L | EXTERNAL | | | | | | LAB | | + + + + + + | Glucose, | 141 (H) | 65 - 99 mg/dL | EXTERNAL | | | Fasting | | | LAB | | + + + + + + | BUN | 11 | 8 - 25 mg/dL | EXTERNAL | | | | | | LAB | | + + + + + + | Creatinine | 0.6 | 0.50 - 1.00 | EXTERNAL | | | | | mg/dL | LAB | | + + + + + + | BUN/Creatin | 18 | | EXTERNAL | | | ine Ratio | | | LAB | | + + + + + + | Calcium | 8.2 (L) | 8.5 - 10.5 | EXTERNAL | | | | | mg/dL | LAB | | + + + + + + | Protein, | 6.6 | 6.3 - 8.2 g/dL | EXTERNAL | | | Total | | | LAB | | + + + + + + | Albumin | 3.6 | 3.6 - 5.0 g/dL | EXTERNAL | | | | | | LAB | | + + + + + + | Globulin | 3.0 | 1.3 - 4.9 g/dL | EXTERNAL | | | | | | LAB | | + + + + + + | A/G Ratio | 1.2 | 1.0 - 2.4 | EXTERNAL | | | | | | LAB | | + + + + + + | Bilirubin | 0.4 | 0.1 - 1.5 mg/dL | EXTERNAL | | | Total | | | LAB | | + + + + + + | ALP, | 123 (H) | 35 - 115 U/L | EXTERNAL | | | External | | | LAB | | + + + + + + | AST | 25 | 10 - 45 U/L | EXTERNAL | | | | | | LAB | | + + + + + + | ALT | 35 | 10 - 65 U/L | EXTERNAL [...]
--- OUTSIDE RECORDS SUMMARY | ~2020-03-07 | XMS | Encounter Summary ---
Demographics + + + | Address | [address] | | | [place] [address] | + + + | Home Phone | | + + + | Preferred Language | Unknown | + + + | Marital Status | Unknown | + + + | Pentecostalism Affiliation | Unknown | + + + | Race | Unknown | + + + | Ethnic Group | Unknown | + + + Author + + + | Author | [facility] | | | and [place] | + + + | Organization | [facility] | | | and [place] | + + + | Address | Unknown | + + + | Phone | Unavailable | + + + Support + + + + + | Name | Relationship | Address | Phone | + + + + + | Onel Falcon | JESSICA | [address] | | | | | [place], [place] | | | | | [address] | | + + + + + Care Team Providers + +------+ + | Care Eligibility Counselor Name | Role | Phone | + +------+ + PCP | Unavailable | + +------+ + Encounter Details +--------+ + + + + | Date | Type | Department | Care Team | Description | +--------+ + + + + | 10/22/ | Hospital | [facility] | Conversion | Hyperthyroidism; | | 2017 | Encounter | [facility] | Transaction, | Thyroid nodule | | | | [address] | Provider Unknown | | | | | [address] | [phone] | | | | | [place], [place] | | | | | | [address] | | | | | | [phone] | | | +--------+ + + + [...] Progress Notes by Samara Carvalho MD at 10/22/16 0607 Author: Samara Carvalho MD Service: (none) Author Type: Physician Filed: 10/23/16 0887 Date of Service: 10/22/162358 Status: Signed Medical Reception Specialist: Samara Carvalho MD (Physician) Quick Note: Please contact patient and inform of the lab results. I have also sent note via [employer] Hope you are doing well! The recent [...] | + + + | ANGELINA FALCON US THYROID 10/22/2016 2:28 PM HISTORY: [...]
--- OUTSIDE RECORDS SUMMARY | ~2020-03-07 | XMS | Encounter Summary ---
Demographics + + + | Address | [address] | | | [place] [address] | + + + | Home Phone | | + + + | Preferred Language | Unknown | + + + | Marital Status | Unknown | + + + | Yazdanism Affiliation | Unknown | + + + | Race | Unknown | + + + | Ethnic Group | Unknown | + + + Author + + + | Author | [facility] | | | and [place] | + + + | Organization | [facility] | | | and [place] | + + + | Address | Unknown | + + + | Phone | Unavailable | + + + Support + + + + + | Name | Relationship | Address | Phone | + + + + + | Onel Falcon | JESSICA | [address] | | | | | [place] | | | | | [address] | | + + + + + Care Team Providers + +------+ + | Care Solution Professional Name | Role | Phone | + [...] | | 2016 | | [address] | [address] | | | | | [place], [place] | [place], [place] | | | | | [address] | [address] | | | | | [phone] | | | +--------+ + + + [...]
--- OUTSIDE RECORDS SUMMARY | ~2020-03-07 | XMS | Encounter Summary ---
Demographics + + + | Address | [address] | | | [place] [address] | + + + | Home Phone | | + + + | Preferred Language | Unknown | + + + | Marital Status | Unknown | + + + | Pentecostal Affiliation | Unknown | + + + | Race | Unknown | + + + | Ethnic Group | Unknown | + + + Author + + + | Author | and [facility] | | | and [place] | + + + | Organization | and [facility] | | | and [place] | + + + | Address | Unknown | + + + | Phone | Unavailable | + + + Support + + + + + | Name | Relationship | Address | Phone | + + + + + | Onel Falcon | JESSICA | [address] | | | | | [place] | | | | | [address] | | + + + + + Care Team Providers + +------+ + | Care Salvage Supervisor Name | Role | Phone | + +------+ + PCP | Unavailable | + +------+ + Encounter Details +--------+ + + + + | Date | Type | Department | Care Team | Description | +--------+ + + + + | 10/22/ | Hospital | [facility] | Conversion | Hyperthyroidism | | 2017 | Encounter | [facility] | Transaction, | | | | | [address] | Provider Unknown | | | | | [address] [place], [place] | [phone] | | | | | [address] | | | | | | [phone] | Samara Carvalho MD | | | | | | [address] | | | | | | [place], [place] | | | | | | [address] | | | | | | | [...] Service: (none) Author Type: Physician Filed: 10/24/16 8208 Date of Service: 10/22/162358 Status: Signed Frame Stripper And Crusher: Samara Carvalho MD (Physician) Quick Note: I sent note via Anago-chart Hope you are doing well! Great news! [...] | Results for this | | STUDY KRISTYN SHAYEDwight TONY | e | 2:07 PM | | procedure are in the | | ASSESSMENT | | PDT | | results section. | + +--------+ + + + documented in this encounter Results DEXA Bone Density kristyn Shayedwight Holloway (10/22/2016 2:07 PM PDT) + + | [...] the anterior projection | | | and wmbjzd-nh-ckmbimnn values were drawn about the vertebral segments | | | of L1 through L4 at the levels where accurate assessment was possible. | | | A bone mineral analysis was also performed on the left hip with | | | slbpki-hg-htfyqyoy areas including the femoral neck measured. From [...] in the anterior projection and | | itwpry-ng-flhujfzu values were drawn about the vertebral segments of L1 through L4 at | | the levels where accurate assessment was possible. A bone mineral analysis was also | | performed on the left hip with jcimrh-hy-wwllgsmy areas including the femoral neck | | [...]
--- OUTSIDE RECORDS SUMMARY | ~2020-03-07 | XMS | Encounter Summary ---
Demographics + + + | Address | [address] | | | [place] [address] | + + + | Home Phone | | + + + | Preferred Language | Unknown | + + + | Marital Status | Unknown | + + + | Islam Affiliation | Unknown | + + + | Race | Unknown | + + + | Ethnic Group | Unknown | + + + Author + + + | Author | [facility] | | | and [place] | + + + | Organization | [facility] | | | and [place] | + + + | Address | Unknown | + + + | Phone | Unavailable | + + + Support + + + + + | Name | Relationship | Address | Phone | + + + + + | Onel Falcon | JESSICA | [address] | | | | | [place] | | | | | [address] | | + + + + + Care Team Providers + +------+ + | Care Teleprinter Installer Name | Role | Phone | + +------+ + PCP | Unavailable | + +------+ + Encounter Details +--------+ + + + + | Date | Type | Department | Care Team | Description | +--------+ + + + + | 06/25/ | Hospital | [facility] | Conversion | Hyperthyroidism | | 2016 | Encounter | [facility]ENTER | Transaction, | | | | | NUCLEAR MEDICINE | Provider Unknown | | | | | [address] [facility] | | | | | | [place], [place] | (Fax) | | | | | [address] | | | | | | [phone] | | | +--------+ + + + [...] | + + + | [facility] FALCON [place] HYPERTHYROID THERAPY I 131 06/25/2016 12:24 | [...] | Procedure Note | + + | Chito Handley Conversion - 03/22/2019 1:37 PM PDT ANGELINA [...] | | | QUALITATIVE | performed at [facility] | | LAB | | | | Avelino Cook;[place], [place] | | | | | | [address] | | | | + + + [...]
--- OUTSIDE RECORDS SUMMARY | ~2020-03-07 | XMS | Clinical Summary ---
Demographics + + + | Address | [address] | | | [place] [address] | + + + | Home Phone | | + + + | Preferred Language | Unknown | + + + | Marital Status | Unknown | + + + | Sikh Affiliation | Unknown | + + + | Race | Unknown | + + + | Ethnic Group | Unknown | + + + Author + + + | Author | [facility] | | | and [place] | + + + | Organization | [facility] | | | and [place] | + + + | Address | Unknown | + + + | Phone | Unavailable | + + + Support + + + + + | Name | Relationship | Address | Phone | + + + + + | Onel Falcon | JESSICA | [address] | | | | | [place], [place] | | | | | [address] | | + + + + + Care Team Providers + +------+ + | Care Superintendent Meter Tests Name | Role | Phone | + +------+ + | Olga Yanes PA-C | PCP | | + +------+ + Allergies + + + + + + | Active Allergy | Reactions | Severity | Noted | Comments | | | | | Date | | + + + + + + | Famotidine | Hives | High | 05/13/20 | | | | | | 15 [...] Patient | Explanation | | | | Chief Transfer And Pumphouse Operator | | + + + + + | Power of | | | | | Traveling Accountant | | | | + + + + +"
--- OUTSIDE RECORDS SUMMARY | ~2020-03-07 | XMS | Encounter Summary ---
Demographics + + + | Address | [address] | | | [place] [address] | + + + | Home Phone | | + + + | Preferred Language | Unknown | + + + | Marital Status | Unknown | + + + | Synagogue Affiliation | Unknown | + + + | Race | Unknown | + + + | Ethnic Group | Unknown | + + + Author + + + | Author | [facility] | | | and [place] | + + + | Organization | [facility] | | | and [place] | + + + | Address | Unknown | + + + | Phone | Unavailable | + + + Support + + + + + | Name | Relationship | Address | Phone | + + + + + | Onel Falcon | JESSICA | [address] | | | | | [place] | | | | | [address] | | + + + + + Care Team Providers + +------+ + | Care Door Fitter Name | Role | Phone | + +------+ + PCP | Unavailable | + +------+ + Encounter Details +--------+ + + + + | Date | Type | Department | Care Team | Description | +--------+ + + + + | 06/22/ | Hospital | [facility] | Conversion | Hyperthyroidism | | 2016 | Encounter | MEDICAL CENTER | Transaction, | | | | | NUCLEAR MEDICINE | Provider Unknown | | | | | [address] [facility] | | | | | | [place], [place] | (Fax) | | | | | [address] | | | | | | [phone] | | | +--------+ + + + [...] Notes by Samara Carvalho MD at 06/22/16 9012 Author: Samara Carvalho MD Service: (none) Author Type: Physician Filed: 06/23/16 2558 Date of Service: 06/22/16 5636 Status: Signed Leather Goods I Assembler: Samara Carvalho MD (Physician) Quick Note: Please contact patient and inform of the lab results. I have also sent a note via Bee Shield Hope you are doing well! I the [...] At | + + + | ANGEL[facility] LAWS THYROID UPTAKE AND SCAN 06/23/2016 10:36 AM [...] - 03/22/2019 1:37 PM PDT ANGELINA MEDINA THYROID UPTAKE AND | | SCAN06/23/2016 10:36 [...]
[~2020-03-07 16:36] MED LIST changes: +CLONIDINE HCL0.1 M1 PO
== END 2020-03-07 18:28 | disposition home or self-care (01) ==
LOC: ED 16:36
DX: D50.9 Iron deficiency anemia, unspecified (principal); N92.0 Excessive and frequent menstruation with regular cycle; E03.9 Hypothyroidism, unspecified; I10 Essential (primary) hypertension; Z87.891 Personal history of nicotine dependence; Z88.2 Allergy status to sulfonamides; Z88.8 Allergy status to other drugs, medicaments and biological substances; Z79.899 Other long term (current) drug therapy
CPT/HCPCS: 86850; 86900; 86901; 86920; 99284; P9016

== ENCOUNTER 2020-04-25 11:55 | Emergency (ER) | payer OTHER ==
[~2020-04-25] VITALS: Ht 162.6 cm; Wt 104.3 kg
--- OUTSIDE RECORDS SUMMARY | ~2020-04-25 | XMS | Encounter Summary ---
Demographics + + + | Address | [address] | | | [place] [address] | + + + | Home Phone | | + + + | Preferred Language | Unknown | + + + | Marital Status | Unknown | + + + | Yarsanism Affiliation | Unknown | + + + | Race | White | + + + | Ethnic Group | Not or | + + + Author + + + | Author | [facility] | | | and [place] | + + + | Organization | [facility] | | | and [place] | + + + | Address | Unknown | + + + | Phone | Unavailable | + + + Support + + + + + | Name | Relationship | Address | Phone | + + + + + Sascha Falcon | ECON | [address] | | | | | [place] | | | | | [address] | | + + + + + Care Team Providers + +------+ + | Care Network Operations Center Engineer Name | Role | Phone | + +------+ + PCP | Unavailable | + +------+ + Encounter Details +--------+ + + + + | Date | Type | Department | Care Team | Description | +--------+ + + + + | 06/23/ | Hospital | [facility] | Conversion | | | 2016 | Encounter | MEDICAL CENTER | Transaction, | | | | | NUCLEAR MEDICINE | Provider Unknown | | | | | [address] | [phone] | | | | | [place], [place] | | | | | | [address] | | | | | | [phone] | | | +--------+ + + + + Social History + +-------+ +--------+------+ | Tobacco Use | Types | Packs/Day | Years | Date | | | | | Used | | + +-------+ +--------+------+ | Never Assessed | | | | | + +-------+ +--------+------+ + + + | Sex Assigned at | Date Recorded | | | | + + + | Not on file | | + + + documented as of this encounter Medications at Time of Discharge + + + +---------+ + + | Medication | Sig | Dispensed | Refills | Start | End Date | | | | | | Date | | + + + +---------+ + + | Cholecalciferol | Take 5,000 Units by | | 0 | 06/11/20 | | | (VITAMIN D-3) 5000 | mouth daily. | | | 16 | | | units CAPS | | | | | | + + + +---------+ + + documented as of this encounter Plan of Treatment Not on filedocumented as of this encounter Visit Diagnoses Not on filedocumented in this encounter"
--- OUTSIDE RECORDS SUMMARY | ~2020-04-25 | XMS | Encounter Summary ---
Demographics + + + | Address | [address] | | | [place] [address] | + + + | Home Phone | | + + + | Preferred Language | Unknown | + + + | Marital Status | Unknown | + + + | Anabaptism Affiliation | Unknown | + + + | Race | White | + + + | Ethnic Group | Not or | + + + Author + + + | Author | [facility] | | | and [place] | + + + | Organization | [facility] | | | and [place] | + + + | Address | Unknown | + + + | Phone | Unavailable | + + + Support + + + + + | Name | Relationship | Address | Phone | + + + + + Sascha Falcon | ECON | [address] | | | | | [place] | | | | | [address] | | + + + + + Care Team Providers + +------+ + | Care Peoplesoft Taleo Manager Name | Role | Phone | + +------+ + | Olga Yanes PA-C | PCP | | + +------+ + Encounter Details +--------+ + + + + | Date | Type | Department | Care Team | Description | +--------+ + + + + | 06/11/ | Orders Only | [facility] | Samara Carvalho MD | | | 2016 | | [address] [facility] | [address] | | | | | [place] | [place] | | | | | [address] | [address] | | | | | [phone] | | | +--------+ + + + [...] | EXTERNAL LAB: CBC | Routin | 06/11/2016 | | Results for this | | | e | 2:37 PM | | procedure are in the | | | | PDT | | results section. | + +--------+ + + + | T3, FREE | Routin | 06/11/2016 | | Results for this | | | e | 2:37 PM | | procedure are in the | | | | PDT | | results section. | + +--------+ + + + | TSH | Routin | 06/11/2016 | | Results for this | | | e | 2:37 PM | | procedure are in the | | | | PDT | | results section. | + +--------+ + + + | T4, FREE | Routin | 06/11/2016 | | Results for this | | | e | 2:37 PM | | procedure are in the | | | | PDT | | results section. | + +--------+ + + + | COMPREHENSIVE | Routin | 06/11/2016 | | Results for this | | METABOLIC PANEL | e | 2:37 PM | | procedure are in the | | | | PDT | | results section. | + +--------+ + + + documented in this encounter Results External Lab: CBC (06/11/2016 2:37 PM PDT) + + + + + + | Component | Value | Ref Range | Performed | Pathologist | | | | | At | Signature | + + + + + + | WBC | 6.76 | 3.80 - 11.00 | EXTERNAL | | | | | 10*3/uL | LAB | | + + + + + + | Non- | 5.05 | 3.70 - 5.10 | EXTERNAL | | | Red Blood | | 10*6/uL | LAB | | | Cells | | | | | | Counted | | | | | + + + + + + | Hemoglobin | 13.5 | 11.3 - 15.5 | EXTERNAL | | | | | g/dL | LAB | | + + + + + + | Hematocrit, | 39.3 | 34.0 - 46.0 % | EXTERNAL | | | POC | | | LAB | | + + + + + + | MCV | 77.8 (L) | 80.0 - 100.0 fL | EXTERNAL | | | | | | LAB | | + + + + + + | MCH | 26.7 (L) | 27.0 - 34.0 pg | EXTERNAL | | | | | | LAB | | + + + + + + | MCHC | 34.4 | 32.0 - 35.5 | EXTERNAL | | | | | g/dL | LAB | | + + + + + + | RDW-CV | 38.1 | 37 - 53 fL | EXTERNAL | | | | | | LAB | | + + + + + + | Platelet | 226 | 150 - 400 | EXTERNAL | | | Count | | 10*3/uL | LAB | | | Plasma | | | | | + + + + + + | MPV | 8.8 | fL | EXTERNAL | | | | | | LAB | | + + + + + + | Differentia | AUTOMATED | | EXTERNAL | | | l Type | | | LAB | | + + + + + + | % Segmented | 56.79 | % | EXTERNAL | | | | | | LAB | | | Neutrophils | | | | | + + + + + + | % | 33.27 | % | EXTERNAL | | | Lymphocytes | | | LAB | | + + + + + + | % Monocytes | 7.04 | % | EXTERNAL | | | | | | LAB | | + + + + + + | % | 2.59 | % | EXTERNAL | | | Eosinophils | | | LAB | | + + + + + + | % Basophils | 0.31 | % | EXTERNAL | | | | | | LAB | | + + + + + + | Absolute | 3.84 | 1.90 - 7.40 | EXTERNAL | | | Segmented | | 10*3/uL | LAB | | | Neutrophils | | | | | + + + + + + | Absolute | 2.25 | 1.00 - 3.90 | EXTERNAL | | | Lymphocytes | | 10*3/uL | LAB | | + + + + + + | Absolute | 0.48 | 0.00 - 0.80 | EXTERNAL | | | Monocytes | | 10*3/uL | LAB | | + + + + + + | Absolute | 0.18 | 0.00 - 0.50 | EXTERNAL | | | Eosinophils | | 10*3/uL | LAB | | + + + + + + | Absolute | 0.02 | 0.00 - 0.10 | EXTERNAL | [...] | + +---------+ + + T3, Free (06/11/2016 2:37 PM PDT) + +---------+ + + + | Component | Value | Ref Range | Performed | Pathologist | | | | | At | Signature | + +---------+ + + + | T3, Free | 7.9 (H) | 2.18 - 3.98 | EXTERNAL | | | | | pg/mL | LAB | | + +---------+ + + + + + | Specimen | + + | Blood specimen | | (specimen) | + + + +---------+ + + | Performing | Address | City/State/Zipcode | Phone Number | | Organization | | | | + +---------+ + + | EXTERNAL LAB | | | | + +---------+ + + TSH (06/11/2016 2:37 PM PDT) + + + + + + | Component | Value | Ref Range | Performed | Pathologist | | | | | At | Signature | + + + + + + | TSH | <0.01 (L) | 0.45 - 5.10 | EXTERNAL | | | | | u[iU]/mL | LAB | | + + + + + + + + | Specimen | + + | Blood specimen | | (specimen) | + + + +---------+ + + | Performing | Address | City/State/Zipcode | Phone Number | | Organization | | | | + +---------+ + + | EXTERNAL LAB | | | | + +---------+ + + T4, Free (06/11/2016 2:37 PM PDT) + +---------+ + + + | Component | Value | Ref Range | Performed | Pathologist | | | | | At | Signature | + +---------+ + + + | FREE T4 | 2.1 (H) | 0.7 - 1.5 ng/dL | EXTERNAL | | | (REF) | | | LAB | | + +---------+ + + + + + | Specimen | + + | Blood specimen | | (specimen) | + + + +---------+ + + | Performing | Address | City/State/Zipcode | Phone Number | | Organization | | | | + +---------+ + + | EXTERNAL LAB | | | | + +---------+ + + Comprehensive Metabolic Panel (06/11/2016 2:37 PM PDT) + + + + + + | Component | Value | Ref Range | Performed | Pathologist | | | | | At | Signature | + + + + + + | Na | 143 | 135 - 145 | EXTERNAL | | | | | mmol/L | LAB | | + + + + + + | K | 3.7 | 3.5 - 4.9 | EXTERNAL | | | | | mmol/L | LAB | | + + + + + + | Cl | 107 | 99 - 109 mmol/L | EXTERNAL | | | | | | LAB | | + + + + + + | CO2 | 25 | 23 - 32 mmol/L | EXTERNAL | | | | | | LAB | | + + + + + + | Anion Gap | 15 | 5 - 20 mmol/L | EXTERNAL | | | | | | LAB | | + + + + + + | Glucose, | 177 (H) | 65 - 99 mg/dL | EXTERNAL | | | Fasting | | | LAB | | + + + + + + | BUN | 7 (L) | 8 - 25 mg/dL | EXTERNAL | | | | | | LAB | | + + + + + + | Creatinine | 0.5 | 0.50 - 1.00 | EXTERNAL | | | | | mg/dL | LAB | | + + + + + + | BUN/Creatin | 14 | | EXTERNAL | | | ine Ratio | | | LAB | | + + + + + + | Calcium | 8.7 | 8.5 - 10.5 | EXTERNAL | | | | | mg/dL | LAB | | + + + + + + | Protein, | 6.2 (L) | 6.3 - 8.2 g/dL | EXTERNAL | | | Total | | | LAB | | + + + + + + | Albumin | 3.2 (L) | 3.6 - 5.0 g/dL | EXTERNAL | | | | | | LAB | | + + + + + + | Globulin | 3.0 | 1.3 - 4.9 g/dL | EXTERNAL [...] + + + + | ALP, | 119 (H) | 35 - 115 U/L | EXTERNAL | | | External | | | LAB | | + + + + + + | AST | 25 | 10 - 45 U/L | EXTERNAL | | | | | | LAB | | + + + + + + | ALT | 41 | 10 - 65 U/L | EXTERNAL | | | | | | LAB | | + + + + + + | Estimated | >60Comment: GFR <60: | mL/min/{1.73_m2 | EXTERNAL | | | GFR | CHRONIC KIDNEY DISEASE, | } | LAB | | | | IF [...]
--- OUTSIDE RECORDS SUMMARY | ~2020-04-25 | XMS | Encounter Summary ---
Demographics + + + | Address | [address] | | | [place] [address] | + + + | Home Phone | | + + + | Preferred Language | Unknown | + + + | Marital Status | Unknown | + + + | Christian Affiliation | Unknown | + + + | Race | White | + + + | Ethnic Group | Not or | + + + Author + + + | Author | [facility] | | | and [place] | + + + | Organization | [facility] | | | and [place] | + + + | Address | Unknown | + + + | Phone | Unavailable | + + + Support + + + + + | Name | Relationship | Address | Phone | + + + + + Sascha Falcon | ECON | [address] | | | | | [place] | | | | | [address] | | + + + + + Care Team Providers + +------+ + | Care Fuel Management Handler Name | Role | Phone | + +------+ + PCP | Unavailable | + +------+ + Encounter Details +--------+ + + + + | Date | Type | Department | Care Team | Description | +--------+ + + + + | 06/25/ | Hospital | [facility] | Conversion | Hyperthyroidism | | 2016 | Encounter | MEDICAL CENTER | Transaction, | | | | | NUCLEAR MEDICINE | Provider Unknown | | | | | [address] | [phone] | | | | | [place] | | | | | | [address] | | | | | | [phone] | | | +--------+ + + + [...] | + +--------+ + + + | NM RADIOPHARM | Routin | 06/25/2016 | | Results for this | | THERAPY ORAL | e | 12:24 PM | | procedure are in the | | ADMINISTRATION | | PST | | results section. | + +--------+ + + + | , SERUM, | Routin | 06/25/2016 | | Results for this | | QUAL | e | 11:16 AM | | procedure are in the | | | | PST | | results section. | + +--------+ + + + documented in this encounter Results NM Radiopharm Therapy Oral Administratio (06/25/2016 12:24 PM PST) + + | Specimen | + + | | + + + + + | Impressions | Performed At | + + + | 1. Iodine-131 therapy for hyperthyroidism. Electronically | | | signed by Ja Montague MD on 06/25/2016 4:04 PM | | + + + + + + | Narrative | Performed At | + + + | [facility]ALCON [facility] HYPERTHYROID THERAPY I 131 06/25/2016 12:24 | | | PM History: 41 years. Female. Hyperthyroid iodine-131 | | | therapy. The patient has a history of Graves' disease with heat | | | intolerance and severe cardiac palpitations. 24 hour thyroid uptake | | | on 06/22/16 was 48.5%. Serum TSH levels are not measurable. The | | | patient understands that iodine-131 therapy will cause hypothyroidism, | | | requiring lifelong thyroid hormone replacement therapy. Patient has | | | red and understands the radiation precaution measures she should | | | employ after administration of the therapy. The iodine-131 pill | | | measured 16.8 mCi. The prescribed dose is 15 mCi. The patient | | | ingested the pill and was discharged in good condition. | | + + + + + | Procedure Note | + + | Ender, Rad Conversion - 03/22/2019 1:37 PM PDT [facility]EL[facility] MEDINA HYPERTHYROID THERAPY | | I 12:24 PM History: 41 years. Female. Hyperthyroid iodine-131 | | therapy. The patient has a history of Graves' disease with heat intolerance and severe | | cardiac palpitations. 24 hour thyroid uptake on 06/22/16 was 48.5%. Serum TSH levels | | are not measurable. The patient understands that iodine-131 therapy will cause | | hypothyroidism, requiring lifelong thyroid hormone replacement therapy. Patient has red | | and understands the radiation precaution measures she should employ after | | administration of the therapy. The iodine-131 pill measured 16.8 mCi. The prescribed | | dose is 15 mCi. The patient ingested the pill and was discharged in good condition. | | IMPRESSION: 1. Iodine-131 therapy for hyperthyroidism. | | | |The patient ingested the pill and was discharged in good condition. | | | |IMPRESSION: | |1. Iodine-131 therapy for hyperthyroidism. | | | | | + + , Serum, Qual (06/25/2016 11:16 AM PST) + + + + + + | Component | Value | Ref Range | Performed | Pathologist | | | | | At | Signature | + + + + + + | HCG | NEGATIVEComment: Testing | | EXTERNAL | | | QUALITATIVE | performed at [facility];[id number] | | LAB | | | | [address];[place] | | | | | | [address] | | | | + + + [...] + documented in this encounter Visit Diagnoses + + | Diagnosis | + + | Hyperthyroidism Thyrotoxicosis without mention of goiter or other cause, without | | mention of thyrotoxic crisis or storm | + + documented in this encounter"
--- OUTSIDE RECORDS SUMMARY | ~2020-04-25 | XMS | Encounter Summary ---
Demographics + + + | Address | [address] | | | [place] [address] | + + + | Home Phone | | + + + | Preferred Language | Unknown | + + + | Marital Status | Unknown | + + + | Yazidi Affiliation | Unknown | + + + | Race | White | + + + | Ethnic Group | Not or | + + + Author + + + | Author | [facility] | | | and [place] | + + + | Organization | [facility] | | | and [place] | + + + | Address | Unknown | + + + | Phone | Unavailable | + + + Support + + + + + | Name | Relationship | Address | Phone | + + + + + Sascha Falcon | ECON | [address] | | | | | [place] | | | | | [address] | | + + + + + Care Team Providers + +------+ + | Care A And P Technician Name | Role | Phone | + +------+ + PCP | Unavailable | + +------+ + Encounter Details +--------+ + + + + | Date | Type | Department | Care Team | Description | +--------+ + + + + | 10/22/ | Hospital | [facility] | Conversion | Hyperthyroidism; | | 2016 | Encounter | [facility] | Transaction, | Thyroid nodule | | | | [address] | Provider Unknown | | | | | [address] | [phone] | | | | | [place], [place] | | | | | | [address] | | | | | | [phone] | | | +--------+ + + + [...] encounter Progress Notes Samara Carvalho MD - 10/22/2016 11:59 PM PDTFormatting of this note might be different fr om the original. Progress Notes by Samara Carvalho MD at 10/22/162358 Author: Samara Carvalho MD Service: (none) Author Type: Physician Filed: 10/23/16 0812 Date of Service: 10/22/162358 Status: Signed Mammal Control Agent: Samara Carvalho MD (Physician) Quick Note: Please contact patient and inform of the lab results. I have also sent note via [employer] Hope you are doing well! The recent thyroid ultrasound shows a nodule in the right side of the thyroid that is of sufficient size to consider a biopsy. Based on this information combined with the information from the nuclear medicine uptake scan, I recommend we proceed with a biopsy. Please respond if you are amenable to having this done, and then I will place the order through our radiology department. Please continue with all other previous plans for management and follow up, unless there are any other concerns or questions. Take care SB documented in this encounter Plan of Treatment Not on filedocumented as of this encounter Procedures + +--------+ + + + | Procedure Name | Priori | Date/Time | Associated Diagnosis | Comments | | | ty | | | | + +--------+ + + + | US THYROID | Routin | 10/22/2016 | | Results for this | | | e | 2:28 PM | | procedure are in the | | | | PDT | | results section. | + +--------+ + + + documented in this encounter Results US Thyroid (10/22/2016 2:28 PM PDT) + + | Specimen | + + | | + + + + + | Impressions | Performed At | + + + | 1. Right thyroid nodule measuring 1.5 cm with microcalcifications. | | | Ultrasound-guided biopsy is recommended. 2. Small left thyroid | | | nodules measuring 5.5 mm and 4.7 mm. Follow-up ultrasound recommended | | | in 6-12 months. | | + + + + + + | Narrative | Performed At | + + + | [facility]GEL[facility] Marleny FALCON US THYROID 10/22/2016 2:28 PM HISTORY: | | | Hyperthyroidism. Previous nuclear medicine thyroid scan suggesting a | | | hot nodule in the left lobe. TECHNIQUE: Ultrasound of the thyroid | | | gland was performed. FINDINGS: Compared with the nuclear | | | medicine scan of 06/22/2016. The right thyroid lobe measures 4.6 x 1.8 | | | x 2.5 cm in the left measures 5.0 x 1.9 x 1.8 cm. The thyroid isthmus | | | was 5 mm in thickness. There is a solid ill-defined nodule in the | | | right mid thyroid gland measuring 1.0 x 0.8 x 1.5 cm with possible | | | microcalcifications. There is increased risk of malignancy due to the | | | microcalcifications and ultrasound-guided biopsy is suggested. Within | | | the mid left thyroid lobe posteriorly are 2 small thyroid nodules | | | measuring 5.5 mm and 4.7 mm, respectively. A follow-up thyroid | | | ultrasound to be performed in 6-12 months. | | + + + + + | Procedure Note | + + | Ender, Rad Conversion - 03/22/2019 3:01 AM PDT ANGELINA MOSELEY THYROID10/22/2016 | | 2:28 PM HISTORY:Hyperthyroidism. Previous nuclear medicine thyroid scan suggesting a hot | | nodule in the left lobe. TECHNIQUE:Ultrasound of the thyroid gland was performed. | | FINDINGS:Compared with the nuclear medicine scan of 06/22/2016. The right thyroid lobe | | measures 4.6 x 1.8 x 2.5 cm in the left measures 5.0 x 1.9 x 1.8 cm. The thyroid isthmus | | was 5 mm in thickness. There is a solid ill-defined nodule in the right mid thyroid | | gland measuring 1.0 x 0.8 x 1.5 cm with possible microcalcifications. There is increased | | risk of malignancy due to the microcalcifications and ultrasound-guided biopsy is | | suggested. Within the mid left thyroid lobe posteriorly are 2 small thyroid nodules | | measuring 5.5 mm and 4.7 mm, respectively. A follow-up thyroid ultrasound to be | | performed in 6-12 months. IMPRESSION: 1. Right thyroid nodule measuring 1.5 cm with | | microcalcifications. Ultrasound-guided biopsy is recommended.2. Small left thyroid | | nodules measuring 5.5 mm and 4.7 mm. Follow-up ultrasound recommended in 6-12 months. | | | | measuring 5.5 mm and 4.7 mm, respectively. A follow-up thyroid ultrasound to be performed in 6-12 months. | | | |IMPRESSION: | |1. Right thyroid nodule measuring 1.5 cm with microcalcifications. Ultrasound-guided biops y is recommended. | |2. Small left thyroid nodules measuring 5.5 mm and 4.7 mm. Follow-up ultrasound recommende d in 6-12 months. | | | | | + + documented in this encounter Visit Diagnoses + + | Diagnosis | + + | Hyperthyroidism Thyrotoxicosis without mention of goiter or other cause, without | | mention of thyrotoxic crisis or storm | + + | Thyroid nodule Nontoxic uninodular goiter | + + documented in this encounter"
--- OUTSIDE RECORDS SUMMARY | ~2020-04-25 | XMS | Encounter Summary ---
Demographics + + + | Address | [address] | | | [place] [address] | + + + | Home Phone | | + + + | Preferred Language | Unknown | + + + | Marital Status | Unknown | + + + | Latter-Day Affiliation | Unknown | + + + | Race | White | + + + | Ethnic Group | Not or | + + + Author + + + | Author | [facility] | | | and [place] | + + + | Organization | [facility] | | | and [place] | + + + | Address | Unknown | + + + | Phone | Unavailable | + + + Support + + + + + | Name | Relationship | Address | Phone | + + + + + Sascha Falcon | ECON | [address] | | | | | [place] | | | | | [address] | | + + + + + Care Team Providers + +------+ + | Care Batch Operator Name | Role | Phone | + +------+ + PCP | Unavailable | + +------+ + Encounter Details +--------+ + + + + | Date | Type | Department | Care Team | Description | +--------+ + + + + | 10/22/ | Hospital | [facility] | Conversion | Hyperthyroidism | | 2017 | Encounter | [facility] | Transaction, | | | | | [address] | Provider Unknown | | | | | [address] [place], [place] | [phone] | | | | | [address] | | | | | | [phone] | Samara Carvalho MD | | | | | | [address] | | | | | | [place], [place] | | | | | | [address] | | | | | | | | +--------+ + + + [...] MD Service: (none) Author Type: Physician Filed: 10/24/16 7956 Date of Service: 10/22/162358 Status: Signed Mainframe Programmer Analyst: Samara Carvalho MD (Physician) Quick Note: I sent note via [employer] Hope you are doing well! Great news! The bone density test is normal. Please simply continue with all other previous plans for [...] | + +--------+ + + + | DEXA BONE DENSITY | Routin | 10/22/2016 | | Results for this | | STUDY ALEXANDRA CALLOWAY | e | 2:07 PM | | procedure are in the | | ASSESSMENT | | PDT | | results section. | + +--------+ + + + documented in this encounter Results DEXA Bone Density wo Carlota Calloway Assmt (10/22/2016 2:07 PM PDT) + + | Specimen | + + | | + + + + + | Impressions | Performed At | + + + | 1. Bone density measurements of the lumbar spine consistent with | | | normal bone density. 2. Bone density measurements of the left hip | | | consistent with normal bone density. A normal bone density | | | indicates that there is no increased risk of fracture. Preventative | | | measures such as weightbearing exercise and adequate dietary calcium | | | intake should be continued. Followup assessment in 24 months should be | | | considered NOTE: Assessment involves low resolution imaging | | | designed to assess for vertebral compression fractures only. * * * | | | World Health Organization Diagnostic Clarification of Osteoporosis | | | Normal Diagnosis: t-score 0.0 to -1.0 Osteopenia Diagnosis: t-score | | | -1.0 to -2.5 Osteoporosis Diagnosis: t-score -2.5 to -5.0 | | | Severe Osteoporosis Diagnosis: -2.5 to -5.0 plus clinical fracture | | | * The T score represents how many standard deviations by which the | | | patient's bone mass differs from the young normal (age 30) sex-matched | | | reference standard. The Z score is the standard deviation difference | | | as compared with an age and sex-matched reference standard (average | | | for age). The Z score is not used in the diagnostic classification. | | | Read by Tirso Perales MD on 10/22/2016 5:25 PM Electronically | | | signed by Tirso Perales MD on 10/23/2016 12:56 PM | | + + + + + + | Narrative | Performed At | + + + | BONE DENSITOMETRY 10/22/2016 2:07 PM HISTORY The patient is a | | | 41 year old postmenopausal female. The patient reports to have taken | | | Vitamin D. The patient also reports of having Hyperthyroidism. The | | | patient does not perform weightbearing exercise and does not consume | | | dairy products regularly. COMPARISON No priors are available for | | | comparison. TECHNIQUE A bone mineral analysis was performed on | | | the lumbar spine. The patient was scanned in the anterior projection | | | and obypom-cn-icognycn values were drawn about the vertebral segments | | | of L1 through L4 at the levels where accurate assessment was possible. | | | A bone mineral analysis was also performed on the left hip with | | | wmwonr-bq-iwzurdmv areas including the femoral neck measured. From | | | this data, a T score and a Z score were calculated. FINDINGS The | | | AP lumbar and left hip scans are technically adequate. Date of | | | Study: 10/22/2016 2:07 PM L1-L4 Vertebral Bodies BMD 1.317, t-score | | | 2.5, z-score 2.7 PROXIMAL LEFT FEMUR BMD 1.253, t-score | | | 2.5, z-score 2.7 | | + + + + + | Procedure Note | + + | Ender, Rad Conversion - 03/22/2019 3:01 AM PDT BONE DENSITOMETRY 10/22/2016 2:07 PM | | HISTORYThe patient is a 41 year old postmenopausal female. The patient reports to have | | taken Vitamin D. The patient also reports of having Hyperthyroidism. The patient does | | not perform weightbearing exercise and does not consume dairy products regularly. | | COMPARISONNo priors are available for comparison. TECHNIQUEA bone mineral analysis was | | performed on the lumbar spine. The patient was scanned in the anterior projection and | | syzmyy-ha-xvblxsab values were drawn about the vertebral segments of L1 through L4 at | | the levels where accurate assessment was possible. A bone mineral analysis was also | | performed on the left hip with lyftzz-ww-fibpvzhu areas including the femoral neck | | measured. From this data, a T score and a Z score were calculated. FINDINGSThe AP lumbar | | and left hip scans are technically adequate. Date of Study: 10/22/2016 2:07 PML1-L4 | | Vertebral BodiesBMD 1.317, t-score 2.5, z-score 2.7 PROXIMAL LEFT FEMURBMD 1.253, | | t-score 2.5, z-score 2.7 IMPRESSION: 1. Bone density measurements of the lumbar spine | | consistent with normal bone density.2. Bone density measurements of the left hip | | consistent with normal bone density. A normal bone density indicates that there is no | | increased risk of fracture. Preventative measures such as weightbearing exercise and | | adequate dietary calcium intake should be continued. Followup assessment in 24 months | | should be considered NOTE: Assessment involves low resolution imaging designed to | | assess for vertebral compression fractures only. * * * World Health Organization | | Diagnostic Clarification of OsteoporosisNormal Diagnosis: t-score 0.0 to -1.0Osteopenia | | Diagnosis: t-score -1.0 to -2.5Osteoporosis Diagnosis: t-score -2.5 to -5.0Severe | | Osteoporosis Diagnosis: -2.5 to -5.0 plus clinical fracture * The T score represents | | how many standard deviations by which the patient's bone mass differs from the young | | normal (age 30) sex-matched reference standard. The Z score is the standard deviation | | difference as compared with an age and sex-matched reference standard (average for age). | | The Z score is not used in the diagnostic classification. Read by Tirso Perales MD | | on 10/22/2016 5:25 PM | |IMPRESSION: | |1. Bone density measurements of the lumbar spine consistent with normal bone density. | |2. Bone density measurements of the left hip consistent with normal bone density. | | | | | |A normal bone density indicates that there is no increased risk of fracture. Preventative m easures such as weightbearing exercise and adequate dietary calcium intake should be continu ed. Followup assessment in 24 months should be considered | | | | | |NOTE: Assessment involves low resolution imaging designed to assess for vertebral compress ion fractures only. | | | |* * * World Health Organization Diagnostic Clarification of Osteoporosis | |Normal Diagnosis: t-score 0.0 to -1.0 | |Osteopenia Diagnosis: t-score -1.0 to -2.5 | |Osteoporosis Diagnosis: t-score -2.5 to -5.0 | |Severe Osteoporosis Diagnosis: -2.5 to -5.0 plus clinical fracture | | | |* The T score represents how many standard deviations by which the patient's bone mass diff ers from the young normal (age 30) sex-matched reference standard. The Z score is the standa rd deviation difference as compared with an age and sex-matched | |reference standard (average for age). The Z score is not used in the diagnostic classificat ion. | | | |Read by Tirso Perales MD on 10/22/2016 5:25 PM | | | | | + + documented in this encounter Visit Diagnoses + + | Diagnosis | + + | Hyperthyroidism Thyrotoxicosis without mention of goiter or other cause, without | | mention of thyrotoxic crisis or storm | + + documented in this encounter"
--- OUTSIDE RECORDS SUMMARY | ~2020-04-25 | XMS | Encounter Summary ---
Demographics + + + | Address | [address] | | | [place] [address] | + + + | Home Phone [...] Author + + + | Author | [facility] | | | and [place] | + + + | Organization | [facility] | | | and [place] | + + + | Address | Unknown | + + + | Phone | Unavailable | + + + Support + + + + + | Name | Relationship | Address | Phone | + + + + + Sascha Falcon | ECON | [address] | | | | | [place] | | | | | [address] | | + + + + + Care Team Providers + +------+ + | Care Carbide Grinder Name | Role | Phone | + [...] | | | 2017 | | [address] [facility] | [address] | | | | | [facility] | [place] | | | | | [address] | [address] | | | | | [phone] | | | +--------+ + + + [...] Notes by Samara Carvalho MD at 03/15/17 3775 Author: Samara Carvalho MD Service: (none) Author Type: Physician Filed: 03/16/17 0909 Encounter Date: 03/15/2017 Status: Signed Discharge Door Operator: Samara Carvalho MD (Physician) Please contact patient and inform of the lab results. I have also sent note via [employer]. Pl ease also send note to PMD [...]
--- OUTSIDE RECORDS SUMMARY | ~2020-04-25 | XMS | Encounter Summary ---
Demographics + + + | Address | [address] | | | [place] [address] | + + + | Home Phone | | + + + | Preferred Language | Unknown | + + + | Marital Status | Unknown | + + + | Judaism Affiliation | Unknown | + + + | Race | White | + + + | Ethnic Group | Not or | + + + Author + + + | Author | [facility] | | | and [place] | + + + | Organization | [facility] | | | and [place] | + + + | Address | Unknown | + + + | Phone | Unavailable | + + + Support + + + + + | Name | Relationship | Address | Phone | + + + + + Sascha Falcon | ECON | [address] | | | | | [place] | | | | | [address] | | + + + + + Care Team Providers + +------+ + | Care Costume Seamstress Name | Role | Phone | + +------+ + | Olga Yanes PA-C | PCP | + | + +------+ + Encounter Details +--------+ [...] Provider Unknown | | | | | [place], [place] | [phone] | | | | | [address] | | | | | | [phone] | | | +--------+ + + + [...]
--- OUTSIDE RECORDS SUMMARY | ~2020-04-25 | XMS | Clinical Summary ---
Demographics + + + | Address | [address] | | | [place] [address] | + + + | Home Phone [...] Author + + + | Author | [facility] | | | and [place] | + + + | Organization | [facility] | | | and [place] | + + + | Address | Unknown | + + + | Phone | Unavailable | + + + Support + + + + + | Name | Relationship | Address | Phone | + + + + + Sascha Falcon | ECON | [address] | | | | | [place] | | | | | [address] | | + + + + + Care Team Providers + +------+ + | Care Blood Bank Calendar Control Clerk Name | Role | Phone | + +------+ + | Olga Yanes PA-C | PCP | | + +------+ + Allergies + [...] | + + + + + + Medications + + + +---------+------+------+-------+ | Medication | Sig | Dispensed | Refills | Star | End | Statu | | | | | | t | Date | s | | | | | | Date | | | + + + +---------+------+------+-------+ | Cholecalciferol | Take 5,000 Units by | | 0 | | | Activ | | (VITAMIN D-3) 5000 | mouth daily. | | | 11/25 | | e | | units CAPS | | | | 16 | | | + + + +---------+------+------+-------+ Active Problems + + + | Problem | Noted Date | + + + | Hyperthyroidism | 12/18/2014 | + + + Family History + + +------+ + | Medical History | Relation | Name | Comments | + + +------+ + | Diabetes, IDDM | Father | | | + + [...] | | + +------+ + + | Father | | | | + +------+ + + | Mother | | Alive | | + +------+ + + | Mother | | | | + +------+ + + Social History + +-------+ +--------+------+ | Tobacco Use | Types | Packs/Day | Years | Date | | | | | Used | | + +-------+ +--------+------+ | Former Smoker | | 1 | | | + +-------+ +--------+------+ + + | Comments: on and off since age 21 | + + + + + | Sex Assigned at | Date Recorded | | | | + + + | Not on file | | + + + Last Filed Vital Signs + + + + + | Vital Sign | Reading | Time Taken | Comments | + + + + + | Blood Pressure | 136/86 | 06/24/2017 10:37 AM | | | | | PST | | + + + + + | Pulse | 88 | 06/24/2017 10:37 AM | | | | | PST | | + + + + + | Temperature | - | - | | + + + + + | Respiratory Rate | - | - | | + + + + + | Oxygen Saturation | - | - | | + + + + + | Inhaled Oxygen | - | - | | | Concentration | | | | + + + + + | Weight | 108 kg (238 lb) | 06/24/2017 10:37 AM | | | | | PST | | + + + + + | Height | - | - | | + + + + + | Body Mass Index | - | - | | + + + + + Plan of Treatment + + +-------+ + | Health Maintenance | Due Date | Last | Comments | | | | Done | | + + +-------+ + | Vaccine: | | | | | Dtap/Tdap/Td (1 - | 6 | | | | Tdap) | | | | + + +-------+ + | Cervical Cancer | | | | | Screening (Pap) | 7 | | | + + +-------+ + | Vaccine: Influenza | | | | | (#1) | 0 | | | + + +-------+ + Results Not on filefrom Last 3 Months Advance Directives + + + + + | Type | Date Recorded | Patient | Explanation | | | | Infection Control Coordinator | | + + + + + | Power of | | | | | Unmanned Aircraft Systems Roboticist | | | | + + + + +"
--- OUTSIDE RECORDS SUMMARY | ~2020-04-25 | XMS | Encounter Summary ---
Demographics + + + | Address | [address] | | | [place] [address] | + + + | Home Phone | | + + + | Preferred Language | Unknown | + + + | Marital Status | Unknown | + + + | Restorationist Affiliation | Unknown | + + + | Race | White | + + + | Ethnic Group | Not or | + + + Author + + + | Author | [facility] | | | and [place] | + + + | Organization | [facility] | | | and [place] | + + + | Address | Unknown | + + + | Phone | Unavailable | + + + Support + + + + + | Name | Relationship | Address | Phone | + + + + + Sascha Falcon | ECON | [address] | | | | | [place] | | | | | [address] | | + + + + + Care Team Providers + +------+ + | Care Power Machine Operator Name | Role | Phone | + +------+ + PCP | Unavailable | + +------+ + Encounter Details +--------+ + + + + | Date | Type | Department | Care Team | Description | +--------+ + + + + | 06/22/ | Hospital | [facility] | Conversion | | | 2016 | Encounter | [facility] | Transaction, | | | | | NUCLEAR MEDICINE | Provider Unknown | | | | | [address] | [phone] | | | | | [place], [place] | | | | | | [address] | | | | | | [phone] | | | +--------+ + + + [...]
--- OUTSIDE RECORDS SUMMARY | ~2020-04-25 | XMS | Encounter Summary ---
Demographics + + + | Address | [address] | | | [place] [address] | + + + | Home Phone | | + + + | Preferred Language | Unknown | + + + | Marital Status | Unknown | + + + | Church Affiliation | Unknown | + + + | Race | White | + + + | Ethnic Group | Not or | + + + Author + + + | Author | [facility] | | | and [place] | + + + | Organization | [facility] | | | and [place] | + + + | Address | Unknown | + + + | Phone | Unavailable | + + + Support + + + + + | Name | Relationship | Address | Phone | + + + + + Sascha Falcon | ECON | [address] | | | | | [place] | | | | | [address] | | + + + + + Care Team Providers + +------+ + | Care Meat Team Member Name | Role | Phone | + [...] | | 2017 | | [address] [facility] | [address] | | | | | [facility] | [place] | | | | | [address] | [address] | | | | | [phone] | | | +--------+ + + + [...] Progress Notes by Samara Carvalho MD at 10/12/161239 Author: Samara Carvalho MD Service: (none) Author Type: Physician Filed: 10/12/16 1240 Encounter Date: 10/11/2016 Status: Signed Road Repairer: Samara Carvalho MD (Physician) Quick Note: Please contact patient and inform of the lab results. I have also sent a note via [employer] to see you the other day! The [...]
--- OUTSIDE RECORDS SUMMARY | ~2020-04-25 | XMS | Encounter Summary ---
Demographics + + + | Address | [address] | | | [place] [address] | + + + | Home Phone | | + + + | Preferred Language | Unknown | + + + | Marital Status | Unknown | + + + | Congregational Affiliation | Unknown | + + + | Race | White | + + + | Ethnic Group | Not or | + + + Author + + + | Author | [facility] | | | and [place] | + + + | Organization | [facility] | | | and [place] | + + + | Address | Unknown | + + + | Phone | Unavailable | + + + Support + + + + + | Name | Relationship | Address | Phone | + + + + + Sascha Falcon | ECON | [address] | | | | | [place] | | | | | [address] | | + + + + + Care Team Providers + +------+ + | Care Discharge Planner Name | Role | Phone | + +------+ + PCP | Unavailable | + +------+ + Encounter Details +--------+ + + + + | Date | Type | Department | Care Team | Description | +--------+ + + + + | 06/22/ | Hospital | [facility] | Conversion | Hyperthyroidism | | 2016 | Encounter | [facility] | Transaction, | | | | | NUCLEAR MEDICINE | Provider Unknown | | | | | [address] | [phone] | | | | | [place] | | | | | | [address] | | | | | | [phone] | | | +--------+ + + + [...] encounter Progress Notes Samara Carvalho MD - 06/22/2016 1:55 PM PSTFormatting of this note might be different fr om the original. Progress Notes by Samara Carvalho MD at 06/22/16 8200 Author: Samara Carvalho MD Service: (none) Author Type: Physician Filed: 06/23/16 5804 Date of Service: 06/22/16 7884 Status: Signed Foreign Language Instructor: Samara Carvalho MD (Physician) Quick Note: Please contact patient and inform of the lab results. I have also sent a note via real5D Hope you are doing well! I the recent uptakes are fairly high. I certainly do recommend we continue to proceed with plans for the I131 treatment. The results of this initial test also indicate that an update thyroid Ultrasound would also potentially be useful for the future. Ill place that order now. Please continue with all other previous plans for management and follow up, unless there are any other concerns or questions. keri salazar SB documented in this encounter Plan of Treatment Not on filedocumented as of this encounter Procedures + +--------+ + + + | Procedure Name | Priori | Date/Time | Associated Diagnosis | Comments | | | ty | | | | + +--------+ + + + | NM THYROID UPTAKE | Routin | 06/23/2016 | | Results for this | | AND SCAN | e | 10:36 AM | | procedure are in the | | | | PST | | results section. | + +--------+ + + + documented in this encounter Results NM THYROID UPTAKE AND SCAN (06/23/2016 10:36 AM PST) + + | Specimen | + + | | + + + + + | Impressions | Performed At | + + + | 1. Abnormally high thyroid uptake consistent with hyperthyroidism. | | | 2. Possible hyperfunctioning "hot" nodule of the mid LEFT thyroid | | | lobe. 3. Thyroid ultrasound would be useful for further evaluation | | | of the LEFT thyroid lobe. | | + + + + + + | Narrative | Performed At | + + + | [facility]GEL[facility] Marleny [facility]O THYROID UPTAKE AND SCAN 06/23/2016 10:36 AM | | | History: 41 years. Female. Hyperthyroidism and Graves' | | | disease. Technique: The patient ingested a capsule of 373 | | | microCurie of iodine-123. Thyroid uptake measurements were performed | | | at 4 hours and 24 hours. Thyroid pinhole imaging over the neck was | | | performed in 3 projections, with and without typographical markers. | | | Thyroid uptake measurements: 4 hours: 31.5% (normal range 5 - | | | 20%) 24 hours: 48.5% (normal range 8 - 35%) Thyroid | | | imaging: A focal area of mildly increased uptake is noted in the mid | | | aspect of the LEFT thyroid lobe. This may indicate a | | | hyperfunctioning nodule. Ultrasound examination is indicated for | | | further evaluation of possible LEFT thyroid nodule. The remainder | | | of the thyroid imaging is uniform and normal. | | + + + + + | Procedure Note | + + | Chito Handley Conversion - 03/22/2019 1:37 PM PDT [facility]CON[facility] THYROID UPTAKE AND | | SCAN06/23/2016 10:36 AM History: 41 years. Female. Hyperthyroidism and Graves' | | disease. Technique: The patient ingested a capsule of 373 microCurie of iodine-123. | | Thyroid uptake measurements were performed at 4 hours and 24 hours. Thyroid pinhole | | imaging over the neck was performed in 3 projections, with and without typographical | | markers. Thyroid uptake measurements:4 hours: 31.5% (normal range 5 - 20%)24 hours: | | 48.5% (normal range 8 - 35%) Thyroid imaging: A focal area of mildly increased | | uptake is noted in the mid aspect of the LEFT thyroid lobe. This may indicate a | | hyperfunctioning nodule. Ultrasound examination is indicated for further evaluation of | | possible LEFT thyroid nodule. The remainder of the thyroid imaging is uniform and | | normal. IMPRESSION: 1. Abnormally high thyroid uptake consistent with | | hyperthyroidism.2. Possible hyperfunctioning "hot" nodule of the mid LEFT thyroid | | lobe.3. Thyroid ultrasound would be useful for further evaluation of the LEFT thyroid | | lobe. | |possible LEFT thyroid nodule. The | | remainder of the thyroid imaging is uniform and normal. | | | |IMPRESSION: | |1. Abnormally high thyroid uptake consistent with hyperthyroidism. | |2. Possible hyperfunctioning "hot" nodule of the mid LEFT thyroid lobe. | |3. Thyroid ultrasound would be useful for further evaluation of the LEFT thyroid lobe. | | | | | + + documented in this encounter Visit Diagnoses + + | Diagnosis | + + | Hyperthyroidism Thyrotoxicosis without mention of goiter or other cause, without | | mention of thyrotoxic crisis or storm | + + documented in this encounter
--- NOTE | 2020-04-26 07:32 | EKG ---
[facility] [address] [facility] [place], [place] [address] Signed Sinus tachycardia Otherwise normal ECG When compared with ECG of 28-MAR-2019 14:05, No significant change was found Confirmed by ERIN ARMSTRONG MD ([id number]) on 04/26/2020 7:32:03 AM Electronically Signed By: ERIN ARMSTRONG MD 04/26/20 0732 PATIENT NAME: TALON NICHOLAS ZEUS Electrocardiogram DATE OF : 79 PHYSICIAN: ERIN ARMSTRONG MD REPORT #: [id number] REPORT IS CONFIDENTIAL AND NOT TO BE RELEASED WITHOUT AUTHORIZATION
== END 2020-04-25 15:34 | disposition home or self-care (01) ==
LOC: ED 11:55
DX: R20.2 Paresthesia of skin (principal); I10 Essential (primary) hypertension; E03.9 Hypothyroidism, unspecified; G43.909 Migraine, unspecified, not intractable, without status migrainosus; Z88.8 Allergy status to other drugs, medicaments and biological substances; Z88.2 Allergy status to sulfonamides; Z79.899 Other long term (current) drug therapy
CPT/HCPCS: 70551; 80053; 85025; 93005; 93010; 99284-25

== ENCOUNTER 2020-06-15 06:01 | Emergency (ER) | payer OTHER ==
[~2020-06-15] VITALS: Ht 162.6 cm; Wt 104.3 kg
[~2020-06-15 06:01] MED LIST changes: +MOTRIN IB200 MG PO
[2020-06-15] MEDS ORDERED: EUTHYROX50 MCG PO (06:17)
--- NOTE | 2020-06-15 14:13 | EKG ---
[facility] [address] [facility] [place], [place] [address] Signed Normal sinus rhythm Normal ECG When compared with ECG of 15-JUN-2020 06:07, (Unconfirmed) No significant change was found Confirmed by CALVIN OMALLEY MD ([id number]) on 06/15/2020 2:13:16 PM Electronically Signed By: CALVIN OMALLEY MD 06/15/20 1413 PATIENT NAME: CRISTOPHERTALONSHERRY SCHULZ Electrocardiogram DATE OF : 79 PHYSICIAN: CALVIN OMALLEY MD REPORT #: [id number] REPORT IS CONFIDENTIAL AND NOT TO BE RELEASED WITHOUT AUTHORIZATION
--- NOTE | 2020-06-15 14:13 | EKG ---
[facility] [address] [facility] [place] [address] Signed Normal sinus rhythm Normal ECG When compared with ECG of 25-APR-2020 12:20, T wave inversion no longer evident in Inferior leads Confirmed by CALVIN OMALLEY MD ([id number]) on 06/15/2020 2:13:11 PM Electronically Signed By: CALVIN OMALLEY MD 06/15/20 1413 PATIENT NAME: TALON NICHOLAS Electrocardiogram DATE OF : 79 PHYSICIAN: CALVIN OMALLEY MD REPORT #: [id number] REPORT IS CONFIDENTIAL AND NOT TO BE RELEASED WITHOUT AUTHORIZATION
== END 2020-06-15 10:50 | disposition short-term general hospital (02) ==
LOC: ED 06:01
DX: I21.4 Non-ST elevation (NSTEMI) myocardial infarction (principal); E03.9 Hypothyroidism, unspecified; G43.909 Migraine, unspecified, not intractable, without status migrainosus; I10 Essential (primary) hypertension; Z88.2 Allergy status to sulfonamides; Z88.8 Allergy status to other drugs, medicaments and biological substances; Z79.899 Other long term (current) drug therapy
CPT/HCPCS: 71045; 80053; 83735; 84484; 85025; 93005; 93010; 96374; 96375; 96376; 99285-25; J1644; J1885; J2270

== ENCOUNTER 2020-06-28 17:29 | Emergency (ER) | payer OTHER ==
[~2020-06-28] VITALS: Ht 162.6 cm; Wt 104.3 kg
[~2020-06-28 17:29] MED LIST changes: +EUTHYROX50 MCG PO
--- OUTSIDE RECORDS SUMMARY | 2020-06-28 17:32 | XMS ---
PreManage Notification: TALON NICHOLAS Security Brand Strategy Manager Events No recent Security Events currently on file CRITERIA MET - [facility] - 2 Visits in 30 Days CARE PROVIDERS JOY CHEATHAM Physician Restaurant Shift Supervisor 03/29/2019-Current PHONE: Unknown [facility] has no Care Guidelines for this patient. Pamela VISIT COUNT (12 MO.) 4 [facility] TOTAL 4 NOTE: Visits indicate total known visits. ED/UCC VISIT TRACKING (12 MO.) 06/28/2020 17:30 [facility] [place] TYPE: Emergency COMPLAINT: - CHEST PAIN 06/15/2020 06:02 [facility] [place] TYPE: Emergency COMPLAINT: - CHEST PAIN DIAGNOSES: - Chest pain, unspecified - Allergy status to sulfonamides - Essential (primary) hypertension - Non-ST elevation (NSTEMI) myocardial infarction - Other supervisor intermediates (current) drug therapy - Allergy status to other drugs, medicaments and biological substances - Hypothyroidism, unspecified - Migraine, unspecified, not intractable, without status migrainosus 04/25/2020 11:56 [facility] [place] TYPE: Emergency COMPLAINT: - LEFT SIDED NUMBNESS DIAGNOSES: - Migraine, unspecified, not intractable, without status migrainosus - Hypothyroidism, unspecified - Paresthesia of skin - Anesthesia of skin - Other intermediate (current) drug therapy - Allergy status to other drugs, medicaments and biological substances - Allergy status to sulfonamides - Essential (primary) hypertension 03/07/2020 16:36 [facility] TYPE: Emergency COMPLAINT: - ABNORMAL LAB RESULTS DIAGNOSES: - Personal history of nicotine dependence - Excessive and frequent menstruation with regular cycle - Allergy status to sulfonamides - Iron deficiency anemia, unspecified - Dyspnea, unspecified - Other intermediate (current) drug therapy - Allergy status to other drugs, medicaments and biological substances - Essential (primary) hypertension - Hypothyroidism, unspecified INPATIENT VISIT TRACKING (12 MO.) 06/15/2020 12:02 E[facility] [place] TYPE: Medical Surgical COMPLAINT: - NESTEMI DIAGNOSES: 0. Chest pain, unspecified 1. Non-ST elevation (NSTEMI) myocardial infarction 2. Other chest pain 3. Essential (primary) hypertension 4. Hypothyroidism, unspecified 5. Personal history of nicotine dependence 6. Anemia, unspecified 7. Excessive and frequent menstruation with regular cycle 8. Leiomyoma of uterus, unspecified 9. Other specified abnormal findings of blood chemistry 10. Obesity, unspecified [email or web address]
[2020-06-28] MEDS ORDERED: NORCO 7.5-3251 EACH PO (20:00)
--- NOTE | 2020-06-29 23:58 | EKG ---
[facility] [address] [facility] [place] [address] Signed Sinus tachycardia Otherwise normal ECG No previous ECGs available Confirmed by CALVNI OMALLEY MD ([id number]) on 06/29/2020 11:58:26 PM Electronically Signed By: CALVIN OMALLEY MD 06/29/20 2358 PATIENT NAME: TALON NICHOLASShereen Electrocardiogram DATE OF : [birth year] PHYSICIAN: CALVIN OMALLEY MD REPORT #: [id number] REPORT IS CONFIDENTIAL AND NOT TO BE RELEASED WITHOUT AUTHORIZATION
== END 2020-06-28 20:16 | disposition home or self-care (01) ==
LOC: ED 17:29
DX: R07.2 Precordial pain (principal); E03.9 Hypothyroidism, unspecified; I10 Essential (primary) hypertension; G43.909 Migraine, unspecified, not intractable, without status migrainosus; Z88.2 Allergy status to sulfonamides; Z88.8 Allergy status to other drugs, medicaments and biological substances; Z79.899 Other long term (current) drug therapy
CPT/HCPCS: 71045; 80053; 83690; 83735; 84484; 85025; 85610; 93005; 93010; 96374; 96375; 96376; 99285-25; A9270; J1885; J2270

== ENCOUNTER 2020-08-13 06:00 | Day surgery (SDC) | payer OTHER ==
[~2020-08-13] VITALS: Ht 162.6 cm; Wt 100.9 kg
--- NOTE | ~2020-08-13 | OR ---
[facility] [address] [facility] [place] [address] Draft DATE OF OPERATION: 08/13/2020 SURGEON: Mikki Dennis MD RETORT COOLER: Kiran Cruz M.D. PREOPERATIVE DIAGNOSES: 1. Menorrhagia. 2. Iron-deficiency anemia. 3. Right paratubal cyst. POSTOPERATIVE DIAGNOSIS: 1. Menorrhagia. 2. Iron-deficiency anemia. 3. Right paratubal cyst. PROCEDURES: 1. Total laparoscopic hysterectomy. 2. Bilateral salpingectomy. 3. Cystoscopy. ANESTHESIA: General ET. ESTIMATED BLOOD LOSS: Approximately 100 mL. DRAINS: Ni catheter. INDICATIONS AND FINDINGS: The patient is a 45-year-old female, 2, para 2, who has a long history of menorrhagia and iron-deficiency anemia. She has been taking iron off and on as well as needed transfusions in the past. At this point, she is interested in definitive treatment. She has a history of a prior pulmonary embolism as well. At the time of surgery, exam under anesthesia revealed a top-normal sized uterus. It was bulky and sounded to 11 cm. On laparoscopy, again the uterus was bulky, consistent with probable adenomyosis. She has had prior tubal ligation. The right tube had a large paratubal cyst approximately 5 cm. The ovaries were normal. PATIENT NAME: TALON NICHOLAS OPERATIVE REPORT DATE OF : 79 REPORT #: [id number] PHYSICIAN: MIKKI DENNIS MD PCP: JOY CHEATHAM REPORT IS CONFIDENTIAL AND NOT TO BE RELEASED WITHOUT AUTHORIZATION [facility] [address] [place], [place] [address] Draft DESCRIPTION OF PROCEDURE: The patient was prepped and draped in the dorsal lithotomy position. A weighted speculum was placed and the anterior lip of the cervix was visualized and grasped with a single-tooth tenaculum. The cavity was sounded to 11 cm. The endocervical canal was then dilated and a VCare was placed and the balloon inflated at the fundus. The tenaculum and speculum removed and the cup was fitted over the cervix. The locking cap was then fitted into place as well. Attention was directed above. The infraumbilical area was injected with 0.5% Marcaine plain. An incision was made with a knife, and each layer was serially elevated and incised until the fascia was opened and identified. Stay sutures were placed with 0-Vicryl. The peritoneum was opened sharply. Sugar cannula was placed and the balloon inflated and tied into place. Placement of the scope confirmed proper positioning. CO2 was then introduced in the abdomen under low pressures. Following this, secondary ports were placed slightly below the level of the umbilicus and lateral. The abdominal wall could not be transilluminated due to the thickness. Thus, the incisions were made quite lateral. These areas were injected with the Marcaine, incision made with a knife and the 5 mm port placed under direct vision. The third port was placed on the right lower quadrant in the same manner, but this was a Veress needle, followed by the expanding port. Following this, the pelvis evaluated and the planned procedure appeared appropriate. There was minimal scarring from her prior . The patient's left tube was then grasped and the LigaSure [place] device was used to coagulate and incise the mesosalpinx. The specimen was then removed. The utero-ovarian pedicle was then serially coagulated and divided, followed by coagulation and division of the round ligament. This allowed for creation of a partial bladder flap by incising the peritoneum anteriorly as well as posteriorly. Following this, the uterine vessels were skeletonized and were coagulated multiple times and then divided. Further dissection was done both posteriorly and anteriorly. There was some scarring anteriorly, but the bladder was not advanced on the uterine wall significantly. Following this, attention was directed to the patient's right side. The tubal cyst was quite large and the decision was made to come back to this later. The patient's remaining tube was essentially absent on the right. The utero-ovarian pedicle was serially coagulated and divided, followed by serial coagulation and division of the round ligament. Again, the anterior leaf of the peritoneum was then incised creating the complete bladder flap. The peritoneum was taken down posteriorly as well. Uterine vessels were skeletonized and coagulated multiple times and divided. Further dissection was done both posteriorly and anteriorly. Attention was redirected to the patient's left side and a little bit more dissection was done anteriorly and around the uterine vessel areas and at that point, it was felt that the specimen was able to be removed. The cup could be felt circumferentially. The Sonicision device was then used to separate the vaginal cuff from the specimen. This was begun posteriorly and wrapped around the patient's left and then anteriorly. This was restarted on the posterior aspect and then wrapped around on the patient's right anteriorly. Following this, the PATIENT NAME: TALON NICHOLAS OPERATIVE REPORT DATE OF : 79 REPORT #: [id number] PHYSICIAN: MIKKI DENNIS MD PCP: JOY CHEATHAM REPORT IS CONFIDENTIAL AND NOT TO BE RELEASED WITHOUT AUTHORIZATION [address] [place], [place] [address] Draft specimen was removed intact vaginally. There was a little bit of difficulty just because of the bulk of the uterus. Following removal of the specimen, the vaginal canal was packed with a glove with a wet lap to allow reaccumulation of the pneumoperitoneum. Attention was then redirected above and the abdomen reinflated. The abdomen was copiously irrigated and inspected and there were bleeding points near the left uterine vessel areas as well as the right uterine vessel areas and these were controlled with the LigaSure device as well as a spatula tip cautery. Following this, good hemostasis was noted. The vaginal cuff was left open and attention was directed to the right paratubal cyst. It was fairly close to the infundibulopelvic ligament and the normal ovary, so this was attempted to be removed as superficially as possible and was close to the tube as possible using the LigaSure device. After this was resected, cautery was used over the raw areas around the ovary and the peritoneum. The specimen was dropped into the vaginal canal. The bulk of it, however, made it difficult to keep it in the vaginal canal and it was felt the cuff would be difficult to close with that there. Because of this, the paratubal cyst was drained of clear fluid, which decompress the paratubal cyst and allowed it to be easily placed into the vagina. Following this, further irrigation was done. The cuff was then closed using the Endo Stitch, this was begun at the patient's right uterosacral ligament, taking care to incorporate the vaginal mucosa both posteriorly and anteriorly. This was run to the patient's left uterosacral ligament and back to the center. Following this, the pelvis was again irrigated and inspected and it appeared hemostatic. Because of the extent of the raw area, Tisseel was sprayed over the vaginal cuff and both of the pelvic sidewalls to further aid in hemostasis. The instruments were then removed from the abdomen after allowing as much CO2 as possible to escape. The fascial incision of the umbilicus was reidentified and closed with running suture of 0-Vicryl. The stay sutures were tied across as well. The abdominal incisions were closed with subcuticular sutures of 3-0 Vicryl Rapide for the skin. Attention was then directed below. The vaginal pack was removed as was the paratubal cyst. This Ni catheter was removed and cystoscopy was done. She had received IV fluorescein. Hence, inspection of the bladder showed no evidence of any abnormalities. There was no evidence of any sutures or injury. There was no fluorescein in the bladder, however. Both ureteral orifices were seen and seen to freely egress clear urine on both sides. Following this, the cystoscopy was complete. The Ni catheter was placed after drainage of the bladder. All sponge and needle counts were correct. She tolerated the procedure well and was taken to the recovery room in good condition. Mikki Dennis MD PATIENT NAME: TALON NICHOLAS OPERATIVE REPORT DATE OF : 79 REPORT #: [id number] PHYSICIAN: MIKKI DENNIS MD PCP: JOY CHEATHAM REPORT IS CONFIDENTIAL AND NOT TO BE RELEASED WITHOUT AUTHORIZATION [address] [address] Draft PJW/MODL /[id number] cc: KARLA Ron MD Copies: JOY CHEATHAM MICHAEL JOHN MD ~ PATIENT NAME: TALON NICHOLAS OPERATIVE REPORT DATE OF : 79 REPORT #: [id number] PHYSICIAN: MIKKI DENNIS MD PCP: JOY CHEATHAM REPORT IS CONFIDENTIAL AND NOT TO BE RELEASED WITHOUT AUTHORIZATION
[~2020-08-13 06:00] MED LIST changes: +NORCO 7.5-3251 EACH PO
[2020-08-13] MEDS ORDERED: ONDANSETRON ODT8 MG PO (12:31)
[2020-08-13] MEDS ORDERED: PERCOCET 5-3251 EACH PO (12:31)
[2020-08-13] MEDS ORDERED: MOTRIN IB200 MG PO (12:31)
--- NOTE | 2020-08-15 15:21 | PATH ---
[facility] [address] [place], [place] [address] Signed SPECIMEN(S): A UTERUS, CERVIX, TUBES AND PERATUBAL CYST SPECIMEN SOURCE: A. UTERUS, CERVIX, TUBES AND PERATUBAL CYST CLINICAL HISTORY: Menorrhagia; iron deficiency anemia. Look for adenomyosis. FINAL PATHOLOGIC DIAGNOSIS: Uterus and bilateral fallopian tubes, hysterectomy and bilateral salpingectomies: - 277 gm uterus with: - Leiomyomata. - Secretory endometrium. - Nabothian cysts of the cervix. - Bilateral fallopian tubes with paratubal cysts. DS:[facility]:C2NR MICROSCOPIC EXAMINATION: Histologic sections of all submitted blocks are examined by light microscopy. These findings, together with the gross examination, support the pathologic diagnosis. GROSS DESCRIPTION: The specimen, labeled "PS, A," and designated on the requisition "uterus, cervix, bilat fallopian tube, paratubal cyst," is received in formalin and consists of a uterus with attached cervix and 2 detached fimbriated fallopian tube segments. The uterus with attached cervix weighs 277 g and measures 11.9 x 9.0 x 6.9 cm. The orientation uterus is grossly indeterminate. The uterine serosa is dominique, smooth, glistening. The dominique-white ectocervical tissue is somewhat ragged, and occupies a 3.1 x 3.0 cm area. The external os is patent, oval, and 0.6 cm in diameter. The internal os is patent and the cervical stroma is grossly unremarkable. The triangular endometrial cavity measures 7.0 x 4.0 cm. The dominique to dark red endometrium is markedly thickened up to 1.0 cm and without a discrete mass/lesion. The dominique, rubbery myometrium is focal areas of trabecular islands and 2 dominique-white, somewhat well-circumscribed nodules from 0.7 up to 1.7 cm in greatest dimension. The nodules have a whorled, holguin-white cut surface. An additional discrete mass/lesion is marked PATIENT NAME: TALON NICHOLAS PATHOLOGY DATE OF : 79 REPORT #: [id number] PHYSICIAN: ELIO PATHOLOGY PCP: JOY CHEATHAM REPORT IS CONFIDENTIAL AND NOT TO BE RELEASED WITHOUT AUTHORIZATION [facility] [address] [place], [place] [address] Signed grossly identified. The 2 fimbriated fallopian tube segments are undesignated, dominique-white to purple, and have a patent lumen. The first is inked blue, 5.8 cm long, 0.9 cm in diameter, and has a previously incised, smooth inner walled, 4.1 cm in greatest dimension, paratubal cystic structure. The second tube is 3.7 cm long, 0.7 cm in diameter, and has multiple clear fluid-filled to purulent fluid-filled paratubal cystic structures from less than 0.1 up to 0.7 in greatest dimension. Quality Control Associate sections are submitted as follows: A1-A2 cervix A3-A4 uterine wall A5 nodules A6-A8 first tubal segment with attached cystic structure A9 second tube AI (under the direct supervision of a pathologist) The Gross Description was prepared using a voice recognition system. The report was reviewed for accuracy; however, sound-alike word errors, addition and/or deletions may occur. If there is any question about this report, please contact Client Services. PERFORMING LABORATORY: The technical component was performed by [facility], [address] [place] [id number] (Ambulance Dispatcher: Ely Joel MD; CLIA# [id number]). Professional interpretation was performed by [facility], [facility], [address] [place] [address] (CLIA#: [id number]). Diagnostician: Nicola Almodovar MD Pathologist Electronically Signed 08/15/2020 Copies: ~ PATIENT NAME: TALON NICHOLAS PATHOLOGY DATE OF : 79 REPORT #: [id number] PHYSICIAN: MARYCARMENCont[employer]Vir Pharm[employer] PATHOLOGY PCP: JOY CHEATHAM REPORT IS CONFIDENTIAL AND NOT TO BE RELEASED WITHOUT AUTHORIZATION
== END 2020-08-13 16:15 | disposition home or self-care (01) ==
LOC: DS 06:00
PROVIDERS: ATTEND Obstetrics & Gynecology
DX: D25.9 Leiomyoma of uterus, unspecified (principal); D50.0 Iron deficiency anemia secondary to blood loss (chronic); N88.8 Other specified noninflammatory disorders of cervix uteri; N83.8 Other noninflammatory disorders of ovary, fallopian tube and broad ligament; N94.5 Secondary dysmenorrhea; I10 Essential (primary) hypertension; E89.0 Postprocedural hypothyroidism; E66.01 Morbid (severe) obesity due to excess calories; Z98.51 Tubal ligation status; Z86.711 Personal history of pulmonary embolism; Z68.38 Body mass index [BMI] 38.0-38.9, adult; Z88.8 Allergy status to other drugs, medicaments and biological substances; Z87.891 Personal history of nicotine dependence
CPT/HCPCS: 00840; 36415; 86850; 86900; 86901; 88307; J0694; J1100; J1170; J1644; J1885; J2001; J2250; J2405; J2550; J2704; J3010; J7121

== ENCOUNTER 2021-02-06 22:34 | Emergency (ER) | payer OTHER ==
[~2021-02-06] VITALS: Ht 162.6 cm; Wt 99.8 kg
[~2021-02-06 22:34] MED LIST changes: +PERCOCET 5-3251 EACH PO
--- NOTE | 2021-02-07 06:32 | EKG ---
[facility] [address] [facility] [place], [place] [address] Signed Normal sinus rhythm with sinus arrhythmia Normal ECG When compared with ECG of 28-JUN-2020 17:35, No significant change was found Confirmed by ERIN ARMSTRONG MD ([id number]) on 02/07/2021 6:32:28 AM Electronically Signed By: ERIN ARMSTRONG MD 02/07/21 0632 PATIENT NAME: NICHOLASTALONSHERRY SCHULZ Electrocardiogram DATE OF : 79 PHYSICIAN: ERIN ARMSTRONG MD REPORT #: [id number] REPORT IS CONFIDENTIAL AND NOT TO BE RELEASED WITHOUT AUTHORIZATION
== END 2021-02-07 02:06 | disposition home or self-care (01) ==
LOC: ED 22:34
DX: I10 Essential (primary) hypertension (principal); R07.9 Chest pain, unspecified; F45.8 Other somatoform disorders; E03.9 Hypothyroidism, unspecified; G43.909 Migraine, unspecified, not intractable, without status migrainosus; Z88.2 Allergy status to sulfonamides; Z88.8 Allergy status to other drugs, medicaments and biological substances; Z79.899 Other long term (current) drug therapy
CPT/HCPCS: 71045; 80053; 83735; 84484; 85025; 93005; 93010; 99285-25

== ENCOUNTER 2021-09-16 18:45 | Emergency (ER) | payer OTHER ==
[~2021-09-16] VITALS: Ht 162.6 cm; Wt 98.0 kg
--- NOTE | 2021-09-17 18:54 | EKG ---
[facility] [address] [facility] [place], [place] [address] Signed Normal sinus rhythm Normal ECG When compared with ECG of 06-FEB-2021 23:00, No significant change was found Confirmed by ADAL DE LA VEGA DO ([id number]) on 09/17/2021 6:54:00 PM Electronically Signed By: ADAL DE LA VEGA DO 09/17/21 1854 PATIENT NAME: TALON NICHOLAS ZEUS Electrocardiogram DATE OF : 79 PHYSICIAN: ADAL DE LA VEGA DO REPORT #: [id number] REPORT IS CONFIDENTIAL AND NOT TO BE RELEASED WITHOUT AUTHORIZATION
== END 2021-09-16 20:37 | disposition home or self-care (01) ==
LOC: ED 18:45
DX: R07.89 Other chest pain (principal); I10 Essential (primary) hypertension; E03.9 Hypothyroidism, unspecified; G43.909 Migraine, unspecified, not intractable, without status migrainosus; Z88.2 Allergy status to sulfonamides; Z88.8 Allergy status to other drugs, medicaments and biological substances; Z79.899 Other long term (current) drug therapy
CPT/HCPCS: 36415; 71046; 83735; 84484; 85025; 93005; 93010; 99285-25

== ENCOUNTER 2022-06-29 16:10 | Emergency (ER) | payer OTHER ==
[~2022-06-29] VITALS: Ht 162.6 cm; Wt 98.9 kg
[2022-06-29] MEDS ORDERED: ESCITALOPRAM OX10 MG PO (16:23)
[2022-06-29] MEDS ORDERED: ESTRADIOL10 MCG VG (16:23)
--- NOTE | 2022-06-29 21:37 | EKG ---
[facility] [address] [facility] [place] [address] Signed Normal sinus rhythm Normal ECG No previous ECGs available Confirmed by Erika Castellon MD () on 06/29/2022 9:36:48 PM Electronically Signed By: ERIKA CASTELLON MD [id number]/29/[id number] PATIENT NAME: TALON NICHOLAS Electrocardiogram DATE OF : 79 PHYSICIAN: ERIKA CASTELLON MD REPORT #: [id number] REPORT IS CONFIDENTIAL AND NOT TO BE RELEASED WITHOUT AUTHORIZATION
== END 2022-06-29 19:27 | disposition home or self-care (01) ==
LOC: ED 16:10
DX: K21.9 Gastro-esophageal reflux disease without esophagitis (principal); R07.89 Other chest pain; E03.9 Hypothyroidism, unspecified; G43.909 Migraine, unspecified, not intractable, without status migrainosus; Z88.2 Allergy status to sulfonamides; Z88.8 Allergy status to other drugs, medicaments and biological substances; Z79.899 Other long term (current) drug therapy
CPT/HCPCS: 36415; 71045; 80053; 83735; 84484; 85025; 93005; 93010; 96374; 99285-25; A9270; J1885

== ENCOUNTER 2022-10-01 22:20 | Emergency (ER) | payer OTHER ==
[~2022-10-01] VITALS: Ht 162.6 cm; Wt 99.8 kg
[~2022-10-01 22:20] MED LIST changes: +ESCITALOPRAM OX10 MG PO; +ESTRADIOL10 MCG VG
[2022-10-02] MEDS ORDERED: CYCLOBENZAPRINE10 MG PO (01:00)
--- NOTE | 2022-10-02 07:34 | EKG ---
[facility] [address] [facility] [place] [address] Signed Normal sinus rhythm Normal ECG No previous ECGs available Confirmed by ERIN ARMSTRONG MD ([id number]) on 10/02/2022 7:33:44 AM Electronically Signed By: ERIN ARMSTRONG MD 10/02/22 0734 PATIENT NAME: TALON NICHOLASCARTER Electrocardiogram DATE OF : 79 PHYSICIAN: ERIN ARMSTRONG MD REPORT #: [id number] REPORT IS CONFIDENTIAL AND NOT TO BE RELEASED WITHOUT AUTHORIZATION
== END 2022-10-02 01:18 | disposition home or self-care (01) ==
LOC: ED 22:20
DX: U07.1 COVID-19 (principal); R07.89 Other chest pain; E03.9 Hypothyroidism, unspecified; G43.909 Migraine, unspecified, not intractable, without status migrainosus; Z88.8 Allergy status to other drugs, medicaments and biological substances; Z88.2 Allergy status to sulfonamides; Z79.899 Other long term (current) drug therapy
CPT/HCPCS: 36415; 71045; 80053; 83735; 83880; 84484; 85025; 85060; 85379; 85610; 85730; 87502; 93005; 93010; 99285-25; C9803; U0003

== ENCOUNTER 2024-07-18 03:17 | Emergency (ER) | payer OTHER ==
[~2024-07-18] VITALS: Ht 162.6 cm; Wt 108.6 kg
[~2024-07-18 03:17] MED LIST changes: +CYCLOBENZAPRINE10 MG PO
[2024-07-18 03:41] LABS: BASOPHILS 0.7 % (0-2); EOSINOPHILS 3.2 % (0-6); HEMOGLOBIN 15.7 g/dL (12.0-18.0); LYMPHOCYTES 32.4 % (24-44); MCH 30.2 (27-36); MCHC 34.9 g/dl (30-36); MCV 86.7 fl (81-99); MONOCYTES 5.1 % (0-12); NEUTROPHILS 58.6 % (39-80); PLATELET COUNT 231 K/uL (140-440); RBC 5.19 M/ul (4.3-5.7); RDW 13.6 (10.5-15.0)
[2024-07-18 04:02] LABS: ALBUMIN 4.1 g/dL (3.4-5.0); ALBUMIN/GLOBULIN RATIO 1.14 (1.1-2.4); ANION GAP 13.8 (7-21); BILIRUBIN, TOTAL 0.7 ng/dL (0.2-1.0); BUN/CREATININE RATIO 18.09 (6.0-28.6); CREATININE, SERUM 1.05 mg/dL (0.55-1.02); POTASSIUM 3.8 mmol/L (3.5-5.1); PROTEIN, TOTAL 7.7 g/dL (6.4-8.2)
[2024-07-18 04:17] LABS: INFLUENZA B NAA NEGATIVE (NEGATIVE); RESPIRATORY SYNCYTIAL VIR NAA NEGATIVE (NEGATIVE)
[2024-07-18] MEDS ORDERED: LORazepam 1 MG HOME.PACK PO ONE (05:15)
[2024-07-18 05:30] VITALS: BP 158/97
--- NOTE | 2024-07-18 22:43 | EKG ---
[facility] [address] [facility] [place] [address] Signed Normal sinus rhythm Normal ECG When compared with ECG of 01-OCT-2022 22:26, No significant change was found Confirmed by Erika Castellon MD () on 07/18/2024 10:43:40 PM Electronically Signed By: ERIKA CASTELLON MD 07/18/24 2243 PATIENT NAME: TALON NICHOLAS ZEUS Electrocardiogram DATE OF : 79 PHYSICIAN: ERIKA CASTELLON MD REPORT #: [id number] REPORT IS CONFIDENTIAL AND NOT TO BE RELEASED WITHOUT AUTHORIZATION
== END 2024-07-18 05:30 | disposition home or self-care (01) ==
LOC: ED 03:17
PROVIDERS: Family Medicine
DX: R06.02 Shortness of breath (principal); R07.89 Other chest pain; E03.9 Hypothyroidism, unspecified; I10 Essential (primary) hypertension; I25.2 Old myocardial infarction; Z86.711 Personal history of pulmonary embolism; Z88.2 Allergy status to sulfonamides; Z88.8 Allergy status to other drugs, medicaments and biological substances; Z79.890 Hormone replacement therapy; Z79.899 Other long term (current) drug therapy
CPT/HCPCS: 36415; 71045; 80053; 83880; 84484; 85025; 85379; 87502; 93005; 93010; 99285-25; U0002